=== PATIENT | female | born 1970 | race African-American/Black ===

== ENCOUNTER 2018-06-14 08:26 | Emergency (ER) | payer BC ==
[~2018-06-14] VITALS: Ht 170.2 cm; Wt 136.0 kg
[~2018-06-14 08:26] MED LIST: ABIL10; CLONIDINE; LABETOLOL; LASIX; NORVASC; TRAZODONE; [UNRECOGNIZED DRUG - OTHER]
[2018-06-14] MEDS ORDERED: KETOROLAC 30MG/ML VIAL IV STA (09:05)
[2018-06-14] MEDS ORDERED: SODIUM CHLORIDE 0.9% 1,000 ML IV ONE (09:05)
[2018-06-14 09:29] LABS: BASOPHILS % 1.5 % (0.0-2.0); EOSINOPHILS % 2.5 % (0.0-5.0); HEMATOCRIT. 38.9 % (36.0-48.0); HEMOGLOBIN. 12.6 g/dL (12.0-16.0); LYMPHOCYTES % 29.1 % (20.0-50.0); MEAN CORPUSCULAR HEMOGLOBIN 26.3 pg (28.0-32.0); MEAN CORPUSCULAR VOLUME 80.9 fL (81.0-99.0); MEAN PLATELET VOLUME 7.5 fl (7.4-10.4); MONOCYTES % 6.4 % (2.0-8.0); NEUTROPHILS % 60.5 % (40.0-76.0); PLATELET 384 x1000/uL (130-400); RED BLOOD CELL COUNT 4.81 mill/uL (4.2-5.4); RED CELL DISTRIBUTION WIDTH 15.6 % (11.6-14.6)
[2018-06-14 09:33] LABS: CHLORIDE 106 mEq/L (98-107)
[2018-06-14 09:37] LABS: HCG SCREEN NEGATIVE; PROTHROMBIN TIME 10.1 sec (9.1-11.1)
[2018-06-14] MEDS ORDERED: AMLODIPINE 5MG TABLET PO ONE (09:45)
[2018-06-14 09:51] LABS: CLARITY URINE CLEAR (CLEAR); COLOR URINE YELLOW (YELLOW); KETONES URINE NEGATIVE (NEGATIVE); LEUKOCYTE ESTERASE URINE NEGATIVE (NEGATIVE); NITRITE URINE NEGATIVE (NEGATIVE); OCCULT BLOOD URINE NEGATIVE (NEGATIVE); PH URINE 5.5 (4.5-8.0); PROTEIN URINE NEGATIVE (NEGATIVE); SPECIFIC GRAVITY URINE 1.011 (1.005-1.030)
[2018-06-14] MEDS ORDERED: ACETAMINOPHEN 325MG TABLET PO ONE (10:45)
[2018-06-14 11:50] VITALS: BP 158/90
== END 2018-06-14 12:37 | disposition home or self-care (01) ==
LOC: ER 08:26
DX: M54.5 Low back pain (principal); G89.29 Other chronic pain; M54.30 Sciatica, unspecified side; F41.9 Anxiety disorder, unspecified; I10 Essential (primary) hypertension; F17.200 Nicotine dependence, unspecified, uncomplicated
CPT/HCPCS: 36415; 80053; 81003; 81025; 84703; 85025; 85610; 87086; 96374; 99283; J1885; J7030

== ENCOUNTER 2018-11-03 02:52 | Emergency (ER) | payer BC, MEDICAID ==
[~2018-11-03] VITALS: Ht 170.2 cm; Wt 127.0 kg
[2018-11-03] MEDS ORDERED: KETOROLAC 60MG/2ML VIAL IM STA (03:28)
[2018-11-03 06:50] VITALS: BP 129/69
== END 2018-11-03 06:57 | disposition home or self-care (01) ==
LOC: ER 02:52
DX: M25.561 Pain in right knee (principal); M25.50 Pain in unspecified joint; F41.9 Anxiety disorder, unspecified; F17.210 Nicotine dependence, cigarettes, uncomplicated; F32.9 Major depressive disorder, single episode, unspecified; I10 Essential (primary) hypertension
CPT/HCPCS: 73562; 81025; 93971; 96372; 99284; J1885

== ENCOUNTER 2019-09-14 06:17 | Emergency (ER) | payer MEDICAID ==
[~2019-09-14] VITALS: Ht 170.2 cm; Wt 111.0 kg
[2019-09-14] MEDS ORDERED: KETOROLAC 60MG/2ML VIAL IM ONE (08:00)
[2019-09-14 09:40] VITALS: BP 172/97
== END 2019-09-14 09:48 | disposition home or self-care (01) ==
LOC: ER 06:17
DX: M25.552 Pain in left hip (principal); M25.562 Pain in left knee; M19.90 Unspecified osteoarthritis, unspecified site; I10 Essential (primary) hypertension; Z79.899 Other long term (current) drug therapy
CPT/HCPCS: 73502; 73560; 99284; J1885

== ENCOUNTER 2019-11-26 11:37 | Emergency (ER) | payer MEDICAID ==
[~2019-11-26] VITALS: Ht 170.2 cm; Wt 160.0 kg
[2019-11-26 11:49] VITALS: BP 185/105
== END 2019-11-26 14:17 | disposition left against medical advice (07) ==
LOC: ER 11:37
DX: Z53.21 Procedure and treatment not carried out due to patient leaving prior to being seen by health care provider (principal)

== ENCOUNTER 2020-12-20 09:43 | Emergency (ER) | payer MEDICAID ==
[~2020-12-20] VITALS: Ht 170.2 cm; Wt 132.0 kg
[2020-12-20 10:32] LABS: BASOPHILS % 0.9 % (0.0-2.0); EOSINOPHILS % 3.2 % (0.0-5.0); HEMATOCRIT. 35.5 % (36.0-48.0); HEMOGLOBIN. 11.7 g/dL (12.0-16.0); LYMPHOCYTES % 22.7 % (20.0-50.0); MEAN CORPUSCULAR HEMOGLOBIN 26.3 pg (28.0-32.0); MEAN PLATELET VOLUME 7.4 fl (7.4-10.4); MONOCYTES % 5.7 % (2.0-8.0); NEUTROPHILS % 67.5 % (40.0-76.0); PLATELET 384 x1000/uL (130-400); RED BLOOD CELL COUNT 4.44 mill/uL (4.2-5.4); RED CELL DISTRIBUTION WIDTH 16.4 % (11.6-14.6)
[2020-12-20 10:39] LABS: CHLORIDE 105 mEq/L (98-107)
[2020-12-20 11:04] LABS: CLARITY URINE CLEAR (CLEAR); COLOR URINE YELLOW (YELLOW); KETONES URINE NEGATIVE (NEGATIVE); LEUKOCYTE ESTERASE URINE NEGATIVE (NEGATIVE); NITRITE URINE NEGATIVE (NEGATIVE); OCCULT BLOOD URINE NEGATIVE (NEGATIVE); PROTEIN URINE NEGATIVE (NEGATIVE); UROBILINOGEN URINE 0.2 E.U./dL (0.2-1.0)
[2020-12-20 13:20] VITALS: BP 146/76
== END 2020-12-20 13:22 | disposition home or self-care (01) ==
LOC: ER 09:56
DX: I10 Essential (primary) hypertension (principal); R07.9 Chest pain, unspecified; F41.9 Anxiety disorder, unspecified; J45.909 Unspecified asthma, uncomplicated; F32.9 Major depressive disorder, single episode, unspecified; F17.210 Nicotine dependence, cigarettes, uncomplicated
CPT/HCPCS: 36415; 71045; 80053; 81003; 83880; 84484; 85025; 93005; 99284

== ENCOUNTER 2021-01-01 11:32 | Emergency (ER) | payer MEDICAID ==
[~2021-01-01] VITALS: Ht 167.6 cm; Wt 150.0 kg
[2021-01-01] MEDS ORDERED: SODIUM CHLORIDE 0.9% 1,000 ML IV ONE (15:15)
[2021-01-01] MEDS ORDERED: ACETAMINOPHEN 325MG TABLET PO STA (15:15)
[2021-01-01 16:03] LABS: CLARITY URINE CLEAR (CLEAR); COLOR URINE YELLOW (YELLOW); KETONES URINE NEGATIVE (NEGATIVE); LEUKOCYTE ESTERASE URINE NEGATIVE (NEGATIVE); NITRITE URINE NEGATIVE (NEGATIVE); OCCULT BLOOD URINE NEGATIVE (NEGATIVE); PROTEIN URINE NEGATIVE (NEGATIVE); SPECIFIC GRAVITY URINE 1.021 (1.005-1.030)
[2021-01-01 16:13] LABS: HEMATOCRIT. 37.4 % (36.0-48.0); HEMOGLOBIN. 12.1 g/dL (12.0-16.0); LYMPHOCYTES % 30.4 % (20.0-50.0); MEAN CORPUSCULAR HEMOGLOBIN 26.1 pg (28.0-32.0); MEAN CORPUSCULAR VOLUME 80.5 fL (81.0-99.0); MEAN PLATELET VOLUME 7.5 fl (7.4-10.4); MONOCYTES % 6.1 % (2.0-8.0); NEUTROPHILS % 58.5 % (40.0-76.0); PLATELET 427 x1000/uL (130-400); RED BLOOD CELL COUNT 4.64 mill/uL (4.2-5.4); RED CELL DISTRIBUTION WIDTH 16.1 % (11.6-14.6)
[2021-01-01 16:16] LABS: CHLORIDE 105 mEq/L (98-107)
[2021-01-01 16:20] LABS: PROTHROMBIN TIME 11.2 sec (9.6-11.0)
[2021-01-01 16:32] LABS: HCG SCREEN NEGATIVE
[2021-01-01] MEDS: KETOROLAC 30MG/ML VIAL IV NR ×3 (18:25→18:50)
[2021-01-01 20:00] VITALS: BP 145/73
[2021-01-01] MEDS ORDERED: IBUP-2028 MT (20:14)
== END 2021-01-01 20:30 | disposition home or self-care (01) ==
LOC: ER 11:32
DX: K80.50 Calculus of bile duct without cholangitis or cholecystitis without obstruction (principal); D25.9 Leiomyoma of uterus, unspecified; I10 Essential (primary) hypertension; F41.9 Anxiety disorder, unspecified; J45.909 Unspecified asthma, uncomplicated; F32.9 Major depressive disorder, single episode, unspecified; Z87.891 Personal history of nicotine dependence
CPT/HCPCS: 36415; 74176; 76700; 76830; 76856; 80053; 81003; 83690; 84703; 85025; 85610; 99285; J1885; J7030

== ENCOUNTER 2021-02-20 17:33 | Emergency (ER) | payer MEDICAID ==
[~2021-02-20] VITALS: Ht 170.2 cm; Wt 127.0 kg
[~2021-02-20 17:33] MED LIST changes: +IBUP-2028 MT
[2021-02-20 19:55] VITALS: BP 136/85
[2021-02-20 20:54] LABS: BASOPHILS % 1.7 % (0.0-2.0); HEMATOCRIT. 37.9 % (36.0-48.0); HEMOGLOBIN. 12.1 g/dL (12.0-16.0); LYMPHOCYTES % 35.6 % (20.0-50.0); MEAN CORPUSCULAR HEMOGLOBIN 25.8 pg (28.0-32.0); MEAN CORPUSCULAR VOLUME 80.8 fL (81.0-99.0); MEAN PLATELET VOLUME 7.4 fl (7.4-10.4); MONOCYTES % 5.9 % (2.0-8.0); NEUTROPHILS % 52.8 % (40.0-76.0); PLATELET 384 x1000/uL (130-400); RED BLOOD CELL COUNT 4.69 mill/uL (4.2-5.4); RED CELL DISTRIBUTION WIDTH 16.6 % (11.6-14.6)
[2021-02-20 20:56] LABS: CHLORIDE 104 mEq/L (98-107)
[2021-02-20 20:57] LABS: CLARITY URINE CLEAR (CLEAR); COLOR URINE YELLOW (YELLOW); KETONES URINE NEGATIVE (NEGATIVE); LEUKOCYTE ESTERASE URINE NEGATIVE (NEGATIVE); NITRITE URINE NEGATIVE (NEGATIVE); OCCULT BLOOD URINE NEGATIVE (NEGATIVE); PROTEIN URINE NEGATIVE (NEGATIVE); SPECIFIC GRAVITY URINE 1.018 (1.005-1.030)
[2021-02-20] MEDS ORDERED: MECLIZINE 25MG TABLET PO ONE (21:45)
[2021-02-20] MEDS ORDERED: MECL-159 MT (22:42)
== END 2021-02-20 23:00 | disposition left against medical advice (07) ==
LOC: ER 17:33
DX: R42 Dizziness and giddiness (principal); F41.9 Anxiety disorder, unspecified; J45.909 Unspecified asthma, uncomplicated; F32.9 Major depressive disorder, single episode, unspecified; I10 Essential (primary) hypertension; Z79.899 Other long term (current) drug therapy
CPT/HCPCS: 36415; 70450; 71045; 80053; 80329; 81003; 81025; 84484; 85025; 93005; 99285; J8597

== ENCOUNTER 2021-06-02 07:28 | Emergency (ER) | payer MEDICAID ==
[~2021-06-02] VITALS: Ht 170.2 cm; Wt 168.0 kg
[~2021-06-02 07:28] MED LIST changes: +MECL-159 MT
[2021-06-02 09:05] LABS: HEMATOCRIT. 36.6 % (36.0-48.0); MEAN CORPUSCULAR HEMOGLOBIN 26.1 pg (28.0-32.0); MEAN CORPUSCULAR VOLUME 79.6 fL (81.0-99.0); MEAN PLATELET VOLUME 7.6 fl (7.4-10.4); RED CELL DISTRIBUTION WIDTH 15.9 % (11.6-14.6)
[2021-06-02 09:08] LABS: CLARITY URINE CLEAR (CLEAR); COLOR URINE YELLOW (YELLOW); KETONES URINE NEGATIVE (NEGATIVE); LEUKOCYTE ESTERASE URINE NEGATIVE (NEGATIVE); NITRITE URINE NEGATIVE (NEGATIVE); OCCULT BLOOD URINE NEGATIVE (NEGATIVE); PH URINE 5.5 (4.5-8.0); PROTEIN URINE NEGATIVE (NEGATIVE); SPECIFIC GRAVITY URINE 1.005 (1.005-1.030); UROBILINOGEN URINE 0.2 E.U./dL (0.2-1.0)
[2021-06-02 09:12] LABS: CHLORIDE 105 mEq/L (98-107)
[2021-06-02 09:43] LABS: PLATELET ESTIMATE NORMAL
[2021-06-02 09:44] LABS: PLATELET 150 x1000/uL (130-400)
[2021-06-02] MEDS ORDERED: TRAM50TA3 MT (10:29)
[2021-06-02 10:47] VITALS: BP 129/62
== END 2021-06-02 10:53 | disposition home or self-care (01) ==
LOC: ER 07:28
DX: R07.89 Other chest pain (principal); I10 Essential (primary) hypertension; J45.909 Unspecified asthma, uncomplicated; Z88.6 Allergy status to analgesic agent; Z79.899 Other long term (current) drug therapy; Z98.890 Other specified postprocedural states
CPT/HCPCS: 36415; 71045; 80053; 81003; 81025; 83880; 84484; 85025; 93005; 99285

== ENCOUNTER 2021-07-29 09:30 | Emergency (ER) | payer MEDICAID ==
[~2021-07-29] VITALS: Ht 172.7 cm; Wt 105.0 kg
[~2021-07-29 09:30] MED LIST changes: +TRAM50TA3 MT
[2021-07-29 10:37] LABS: BASOPHILS % 1.1 % (0.0-2.0); EOSINOPHILS % 2.6 % (0.0-5.0); HEMATOCRIT. 38.1 % (36.0-48.0); HEMOGLOBIN. 12.5 g/dL (12.0-16.0); LYMPHOCYTES % 23.8 % (20.0-50.0); MEAN CORPUSCULAR HEMOGLOBIN 25.8 pg (28.0-32.0); MEAN CORPUSCULAR VOLUME 78.8 fL (81.0-99.0); MEAN PLATELET VOLUME 7.8 fl (7.4-10.4); MONOCYTES % 6.4 % (2.0-8.0); NEUTROPHILS % 66.1 % (40.0-76.0); PLATELET 407 x1000/uL (130-400); RED BLOOD CELL COUNT 4.83 mill/uL (4.2-5.4); RED CELL DISTRIBUTION WIDTH 16.7 % (11.6-14.6)
[2021-07-29 10:47] LABS: CHLORIDE 107 mEq/L (98-107)
[2021-07-29 11:09] LABS: D-DIMER 0.27 mg/L FEU (<0.50); PROTHROMBIN TIME 10.7 sec (9.6-11.0)
[2021-07-29] MEDS ORDERED: AMLODIPINE 5MG TABLET PO ONE ×3 (13:00→13:30)
[2021-07-29 13:56] VITALS: BP 157/87
== END 2021-07-29 13:59 | disposition home or self-care (01) ==
LOC: ER 09:30
DX: R07.9 Chest pain, unspecified (principal); F41.9 Anxiety disorder, unspecified; J45.909 Unspecified asthma, uncomplicated; F32.9 Major depressive disorder, single episode, unspecified; I10 Essential (primary) hypertension; Z88.6 Allergy status to analgesic agent
CPT/HCPCS: 36415; 71045; 80053; 83880; 84484; 85025; 85379; 93005; 99285

== ENCOUNTER 2021-09-12 09:51 | Emergency (ER) | payer MEDICAID ==
[~2021-09-12] VITALS: Ht 172.7 cm; Wt 136.0 kg
[2021-09-12 11:55] LABS: BASOPHILS % 0.9 % (0.0-2.0); EOSINOPHILS % 3.4 % (0.0-5.0); HEMATOCRIT. 36.1 % (36.0-48.0); HEMOGLOBIN. 11.8 g/dL (12.0-16.0); LYMPHOCYTES % 28.1 % (20.0-50.0); MEAN CORPUSCULAR HEMOGLOBIN 26.2 pg (28.0-32.0); MEAN CORPUSCULAR VOLUME 80.1 fL (81.0-99.0); MEAN PLATELET VOLUME 7.4 fl (7.4-10.4); MONOCYTES % 7.4 % (2.0-8.0); NEUTROPHILS % 60.2 % (40.0-76.0); PLATELET 366 x1000/uL (130-400); RED BLOOD CELL COUNT 4.51 mill/uL (4.2-5.4); RED CELL DISTRIBUTION WIDTH 16.6 % (11.6-14.6)
[2021-09-12 12:06] LABS: CHLORIDE 107 mEq/L (98-107)
[2021-09-12 12:07] LABS: HCG SCREEN NEGATIVE
[2021-09-12 14:40] LABS: CLARITY URINE CLEAR (CLEAR); COLOR URINE YELLOW (YELLOW); KETONES URINE TRACE (NEGATIVE); LEUKOCYTE ESTERASE URINE NEGATIVE (NEGATIVE); NITRITE URINE NEGATIVE (NEGATIVE); OCCULT BLOOD URINE NEGATIVE (NEGATIVE); PH URINE 5.5 (4.5-8.0); PROTEIN URINE NEGATIVE (NEGATIVE); SPECIFIC GRAVITY URINE 1.027 (1.005-1.030)
[2021-09-12 15:11] VITALS: BP 148/85
[2021-09-12] MEDS ORDERED: ACETAMINOPHEN 325MG TABLET PO ONE (15:15)
== END 2021-09-12 15:19 | disposition home or self-care (01) ==
LOC: ER 09:51
DX: D25.9 Leiomyoma of uterus, unspecified (principal); K80.80 Other cholelithiasis without obstruction; D50.9 Iron deficiency anemia, unspecified; F41.9 Anxiety disorder, unspecified; J45.909 Unspecified asthma, uncomplicated; F32.9 Major depressive disorder, single episode, unspecified; I10 Essential (primary) hypertension; Z88.6 Allergy status to analgesic agent
CPT/HCPCS: 36415; 71045; 76705; 76830; 76856; 80053; 81003; 84484; 84703; 85025; 99285

== ENCOUNTER 2021-10-16 08:29 | Emergency (ER) | payer MEDICAID ==
[~2021-10-16] VITALS: Ht 167.6 cm; Wt 145.0 kg
[2021-10-16 08:35] VITALS: BP 146/81
[2021-10-16] MEDS ORDERED: ACETAMINOPHEN 325MG TABLET PO ONE (09:00)
[2021-10-16] MEDS ORDERED: METH-773 MT (10:08)
== END 2021-10-16 10:17 | disposition home or self-care (01) ==
LOC: ER 08:29
DX: U07.1 COVID-19 (principal); I10 Essential (primary) hypertension
CPT/HCPCS: 71045; 99283

== ENCOUNTER 2021-10-26 07:46 | Emergency (ER) | payer MEDICAID ==
[~2021-10-26] VITALS: Ht 170.2 cm; Wt 146.0 kg
[~2021-10-26 07:46] MED LIST changes: +METH-773 MT
[2021-10-26 10:54] LABS: EOSINOPHILS % 2.5 % (0.0-5.0); HEMATOCRIT. 35.6 % (36.0-48.0); HEMOGLOBIN. 11.6 g/dL (12.0-16.0); LYMPHOCYTES % 26.3 % (20.0-50.0); MEAN CORPUSCULAR HEMOGLOBIN 26.4 pg (28.0-32.0); MEAN CORPUSCULAR VOLUME 80.8 fL (81.0-99.0); MEAN PLATELET VOLUME 8.1 fl (7.4-10.4); MONOCYTES % 6.7 % (2.0-8.0); NEUTROPHILS % 62.5 % (40.0-76.0); PLATELET 386 x1000/uL (130-400); RED CELL DISTRIBUTION WIDTH 16.6 % (11.6-14.6)
[2021-10-26 11:02] LABS: CHLORIDE 107 mEq/L (98-107)
[2021-10-26 11:09] LABS: HCG SCREEN NEGATIVE
[2021-10-26] MEDS: MORPHINE SULFATE 4 MG/ML CPJ (NOT FOR IM USE) IV ONE (12:15)
[2021-10-26] MEDS ORDERED: ACETAMINOPHEN 325MG TABLET PO ONE (12:30)
[2021-10-26 13:24] VITALS: BP 169/94
[2021-10-30] MEDS ORDERED: BACL-141 MT (20:28)
[2021-10-30] MEDS ORDERED: ACET-2708 MT (20:28)
[2021-10-30] MEDS ORDERED: LIDO700A15 TP (20:28)
== END 2021-10-26 15:00 | disposition left against medical advice (07) ==
LOC: ER 08:03 → CMPBEDREQ 16:56
DX: R07.89 Other chest pain (principal); J45.909 Unspecified asthma, uncomplicated; I10 Essential (primary) hypertension; Z88.6 Allergy status to analgesic agent; Z79.899 Other long term (current) drug therapy
CPT/HCPCS: 36415; 71045; 80053; 84484; 84703; 85025; 93005; 99285; J2270

== ENCOUNTER → 2021-10-30 | Emergency (ER) | payer MEDICAID ==
[~2021-10-30] VITALS: Ht 170.2 cm; Wt 167.7 kg
[~2021-10-30] MED LIST changes: +ACET-2708 MT; +ACETAMINOPHEN 325MG TABLET PO NR; +BACL-141 MT; +LIDO700A15 TP; +LIDOCAINE 5% PATCH TOP SCH
[2021-10-30 19:58] LABS: BASOPHILS % 0.8 % (0.0-2.0); EOSINOPHILS % 4.9 % (0.0-5.0); HEMATOCRIT. 35.2 % (36.0-48.0); HEMOGLOBIN. 11.4 g/dL (12.0-16.0); LYMPHOCYTES % 33.2 % (20.0-50.0); MEAN CORPUSCULAR HEMOGLOBIN 26.1 pg (28.0-32.0); MEAN CORPUSCULAR VOLUME 80.6 fL (81.0-99.0); MEAN PLATELET VOLUME 7.7 fl (7.4-10.4); NEUTROPHILS % 54.1 % (40.0-76.0); PLATELET 378 x1000/uL (130-400); RED BLOOD CELL COUNT 4.37 mill/uL (4.2-5.4); RED CELL DISTRIBUTION WIDTH 17.1 % (11.6-14.6)
[2021-10-30 20:13] LABS: CHLORIDE 107 mEq/L (98-107)
[2021-10-30 20:21] LABS: ETHANOL BLOOD < 10 mg/dL
[2021-10-30 20:24] LABS: HCG SCREEN NEGATIVE
[2021-10-30 21:58] VITALS: BP 115/78
== END ==
LOC: ER 15:53
DX: R07.89 Other chest pain (principal); I10 Essential (primary) hypertension; M79.10 Myalgia, unspecified site; F41.9 Anxiety disorder, unspecified; J45.909 Unspecified asthma, uncomplicated; F32.9 Major depressive disorder, single episode, unspecified; Z79.899 Other long term (current) drug therapy
CPT/HCPCS: 36415; 71045; 80053; 80320; 83880; 84484; 84703; 85025; 93005; 99285; G0480

== ENCOUNTER 2021-11-21 16:38 | Emergency (ER) | payer MEDICAID ==
[~2021-11-21] VITALS: Ht 170.2 cm; Wt 163.0 kg
[~2021-11-21 16:38] MED LIST changes: -ACETAMINOPHEN 325MG TABLET PO NR; -LIDOCAINE 5% PATCH TOP SCH
[2021-11-21 16:45] VITALS: BP 172/93
[2021-11-21 17:35] LABS: BASOPHILS % 1.1 % (0.0-2.0); HEMOGLOBIN. 11.3 g/dL (12.0-16.0); MEAN CORPUSCULAR HEMOGLOBIN 26.4 pg (28.0-32.0); MEAN CORPUSCULAR VOLUME 81.5 fL (81.0-99.0); MEAN PLATELET VOLUME 7.6 fl (7.4-10.4); MONOCYTES % 8.4 % (2.0-8.0); NEUTROPHILS % 56.5 % (40.0-76.0); PLATELET 337 x1000/uL (130-400)
[2021-11-21 17:44] LABS: CHLORIDE 110 mEq/L (98-107)
[2021-11-21 17:48] LABS: HCG SCREEN NEGATIVE
[2021-11-21 20:51] LABS: CLARITY URINE CLEAR (CLEAR); COLOR URINE YELLOW (YELLOW); KETONES URINE NEGATIVE (NEGATIVE); LEUKOCYTE ESTERASE URINE NEGATIVE (NEGATIVE); NITRITE URINE NEGATIVE (NEGATIVE); OCCULT BLOOD URINE NEGATIVE (NEGATIVE); PH URINE 5.5 (4.5-8.0); PROTEIN URINE NEGATIVE (NEGATIVE); SPECIFIC GRAVITY URINE 1.029 (1.005-1.030)
[2021-11-21] MEDS ORDERED: ACETAMINOPHEN 325MG TABLET PO ONE (21:15)
[2021-11-22] MEDS ORDERED: ACET-2708 MT (14:22)
[2021-11-22] MEDS ORDERED: HYDR-4001 MT (14:39)
== END 2021-11-21 22:39 | disposition left against medical advice (07) ==
LOC: ER 16:47
DX: K80.80 Other cholelithiasis without obstruction (principal); R10.9 Unspecified abdominal pain; F41.9 Anxiety disorder, unspecified; J45.909 Unspecified asthma, uncomplicated; F32.9 Major depressive disorder, single episode, unspecified; I10 Essential (primary) hypertension; Z88.6 Allergy status to analgesic agent
CPT/HCPCS: 36415; 74176; 80053; 81003; 84703; 85025; 99284

== ENCOUNTER 2021-11-22 00:20 | Emergency (ER) | payer MEDICAID ==
[~2021-11-22] VITALS: Ht 172.7 cm; Wt 169.0 kg
[2021-11-22 00:52] VITALS: BP 157/93
[2021-11-22] MEDS ORDERED: ACET-2708 MT (14:22)
[2021-11-22] MEDS ORDERED: HYDR-4001 MT (14:39)
== END 2021-11-22 06:11 | disposition left against medical advice (07) ==
LOC: ER 00:20
DX: Z53.21 Procedure and treatment not carried out due to patient leaving prior to being seen by health care provider (principal)
CPT/HCPCS: 93005

== ENCOUNTER 2021-11-22 08:57 | Emergency (ER) | payer MEDICAID ==
[~2021-11-22] VITALS: Ht 170.2 cm; Wt 163.0 kg
[2021-11-22] MEDS ORDERED: ACETAMINOPHEN 500MG TABLET PO ONE (13:00)
[2021-11-22 13:27] LABS: BASOPHILS % 0.5 % (0.0-2.0); EOSINOPHILS % 3.2 % (0.0-5.0); HEMATOCRIT. 38.2 % (36.0-48.0); HEMOGLOBIN. 12.3 g/dL (12.0-16.0); LYMPHOCYTES % 21.9 % (20.0-50.0); MEAN CORPUSCULAR HEMOGLOBIN 26.2 pg (28.0-32.0); MEAN CORPUSCULAR VOLUME 81.8 fL (81.0-99.0); MEAN PLATELET VOLUME 7.7 fl (7.4-10.4); MONOCYTES % 5.5 % (2.0-8.0); NEUTROPHILS % 68.9 % (40.0-76.0); PLATELET 377 x1000/uL (130-400); RED BLOOD CELL COUNT 4.67 mill/uL (4.2-5.4); RED CELL DISTRIBUTION WIDTH 17.1 % (11.6-14.6)
[2021-11-22 13:28] LABS: CHLORIDE 106 mEq/L (98-107)
[2021-11-22] MEDS ORDERED: ACET-2708 MT (14:22)
[2021-11-22] MEDS ORDERED: HYDR-4001 MT (14:39)
[2021-11-22 14:41] VITALS: BP 134/72
== END 2021-11-22 14:43 | disposition home or self-care (01) ==
LOC: ER 09:12
DX: K80.20 Calculus of gallbladder without cholecystitis without obstruction (principal); F41.9 Anxiety disorder, unspecified; J45.909 Unspecified asthma, uncomplicated; F32.9 Major depressive disorder, single episode, unspecified; I10 Essential (primary) hypertension
CPT/HCPCS: 36415; 76705; 80053; 81025; 85025; 99284

== ENCOUNTER 2021-12-20 00:20 | Emergency (ER) | payer MEDICAID ==
[~2021-12-20] VITALS: Ht 170.2 cm; Wt 168.9 kg
[~2021-12-20 00:20] MED LIST changes: +HYDR-4001 MT
[2021-12-20 08:17] LABS: BASOPHILS % 1.2 % (0.0-2.0); EOSINOPHILS % 2.9 % (0.0-5.0); HEMATOCRIT. 36.1 % (36.0-48.0); HEMOGLOBIN. 12.4 g/dL (12.0-16.0); LYMPHOCYTES % 24.4 % (20.0-50.0); MEAN CORPUSCULAR HEMOGLOBIN 27.7 pg (28.0-32.0); MEAN CORPUSCULAR VOLUME 80.5 fL (81.0-99.0); MEAN PLATELET VOLUME 7.7 fl (7.4-10.4); MONOCYTES % 6.6 % (2.0-8.0); NEUTROPHILS % 64.9 % (40.0-76.0); PLATELET 427 x1000/uL (130-400); RED BLOOD CELL COUNT 4.48 mill/uL (4.2-5.4)
[2021-12-20 08:23] LABS: CHLORIDE 102 mEq/L (98-107)
[2021-12-20] MEDS ORDERED: KETOROLAC 30MG/ML VIAL IV ONE (08:30)
[2021-12-20 09:27] VITALS: BP 153/98
== END 2021-12-20 09:28 | disposition home or self-care (01) ==
LOC: ER 00:51
DX: R07.89 Other chest pain (principal); F41.9 Anxiety disorder, unspecified; J45.909 Unspecified asthma, uncomplicated; I10 Essential (primary) hypertension; Z79.899 Other long term (current) drug therapy
CPT/HCPCS: 36415; 71045; 80053; 81025; 83690; 84484; 85025; 96374; 99284; J1885

== ENCOUNTER 2022-02-13 09:34 | Emergency (ER) | payer MEDICAID ==
[~2022-02-13] VITALS: Ht 170.2 cm; Wt 147.0 kg
[2022-02-13 09:42] VITALS: BP 176/112
[2022-02-13] MEDS ORDERED: ASPIRIN 325MG TABLET PO ONE (11:00)
[2022-02-13] MEDS ORDERED: ALBUTEROL (0.083%) 2.5MG/3ML NEB HHN ONE (11:00)
[2022-02-13] MEDS ORDERED: PREDNISONE 20MG TABLET PO ONE (11:00)
[2022-02-13 13:52] LABS: BASOPHILS % 0.7 % (0.0-2.0); EOSINOPHILS % 2.5 % (0.0-5.0); HEMATOCRIT. 36.7 % (36.0-48.0); HEMOGLOBIN. 11.9 g/dL (12.0-16.0); MEAN CORPUSCULAR HEMOGLOBIN 26.5 pg (28.0-32.0); MEAN CORPUSCULAR VOLUME 81.7 fL (81.0-99.0); MEAN PLATELET VOLUME 7.8 fl (7.4-10.4); MONOCYTES % 4.2 % (2.0-8.0); NEUTROPHILS % 75.6 % (40.0-76.0); PLATELET 357 x1000/uL (130-400); RED BLOOD CELL COUNT 4.49 mill/uL (4.2-5.4); RED CELL DISTRIBUTION WIDTH 16.5 % (11.6-14.6)
[2022-02-13 14:01] LABS: CHLORIDE 104 mEq/L (98-107)
[2022-02-13] MEDS ORDERED: P20 MT (14:18)
[2022-02-13] MEDS ORDERED: GUAI-450 MT (14:29)
[2022-02-13] MEDS ORDERED: METH-653 MT (15:00)
[2022-02-13] MEDS ORDERED: METHOCARBAMOL 750MG TABLET PO SCH (22:00)
== END 2022-02-13 15:00 | disposition home or self-care (01) ==
LOC: ER 09:41
DX: J45.901 Unspecified asthma with (acute) exacerbation (principal); F41.9 Anxiety disorder, unspecified; I11.9 Hypertensive heart disease without heart failure; Z88.6 Allergy status to analgesic agent
CPT/HCPCS: 36415; 71045; 80053; 84484; 85025; 93005; 94640; 99285; J7512; Z7610

== ENCOUNTER 2022-02-24 08:35 | Emergency (ER) | payer MEDICAID ==
[~2022-02-24] VITALS: Ht 170.2 cm; Wt 168.7 kg
[~2022-02-24 08:35] MED LIST changes: +GUAI-450 MT; +METH-653 MT; +P20 MT
[2022-02-24 10:38] VITALS: BP 157/85
== END 2022-02-24 18:07 | disposition left against medical advice (07) ==
LOC: ER 08:35
DX: Z53.21 Procedure and treatment not carried out due to patient leaving prior to being seen by health care provider (principal); J45.909 Unspecified asthma, uncomplicated; F41.9 Anxiety disorder, unspecified; I11.9 Hypertensive heart disease without heart failure; Z88.6 Allergy status to analgesic agent
CPT/HCPCS: 93005

== ENCOUNTER 2022-03-27 07:23 | Emergency (ER) | payer MEDICAID ==
[~2022-03-27] VITALS: Ht 170.2 cm; Wt 148.0 kg
[2022-03-27 07:59] VITALS: BP 167/92
[2022-03-27] MEDS ORDERED: MAGNESIUM/ALUMINUM HYDROXIDE/SIMETHICONE 30ML UDC PO STA (08:59)
[2022-03-27] MEDS ORDERED: FAMOTIDINE 20MG TABLET PO ONE (09:00)
[2022-03-27 09:26] LABS: BASOPHILS % 0.8 % (0.0-2.0); EOSINOPHILS % 1.5 % (0.0-5.0); HEMATOCRIT. 37.6 % (36.0-48.0); HEMOGLOBIN. 12.3 g/dL (12.0-16.0); LYMPHOCYTES % 19.8 % (20.0-50.0); MEAN CORPUSCULAR HEMOGLOBIN 25.9 pg (28.0-32.0); MEAN PLATELET VOLUME 7.2 fl (7.4-10.4); MONOCYTES % 6.2 % (2.0-8.0); NEUTROPHILS % 71.7 % (40.0-76.0); PLATELET 380 x1000/uL (130-400); RED BLOOD CELL COUNT 4.76 mill/uL (4.2-5.4); RED CELL DISTRIBUTION WIDTH 16.5 % (11.6-14.6)
[2022-03-27 09:33] LABS: CHLORIDE 107 mEq/L (98-107)
[2022-03-27] MEDS ORDERED: MAG-55 MT (11:29)
[2022-03-27] MEDS ORDERED: FAMO20TA8 PO (11:29)
[2022-03-29] MEDS ORDERED: P20 MT (13:41)
== END 2022-03-27 11:37 | disposition home or self-care (01) ==
LOC: ER 07:41
DX: R10.12 Left upper quadrant pain (principal); I11.9 Hypertensive heart disease without heart failure; F41.9 Anxiety disorder, unspecified; J45.909 Unspecified asthma, uncomplicated; E66.01 Morbid (severe) obesity due to excess calories; Z68.43 Body mass index [BMI] 50.0-59.9, adult; Z79.01 Long term (current) use of anticoagulants; Z88.6 Allergy status to analgesic agent; Z88.5 Allergy status to narcotic agent
CPT/HCPCS: 36415; 80053; 84484; 85025; 93005; 99284

== ENCOUNTER 2022-04-07 18:26 | Emergency (ER) | payer MEDICAID ==
[~2022-04-07] VITALS: Ht 170.2 cm; Wt 146.0 kg
[~2022-04-07 18:26] MED LIST changes: +FAMO20TA8 PO; +MAG-55 MT
[2022-04-07 18:45] VITALS: BP 150/89
[2022-04-07] MEDS ORDERED: ALBUTEROL (0.083%) 2.5MG/3ML NEB HHN ONE (19:45)
[2022-04-07 21:55] LABS: BASOPHILS % 1.2 % (0.0-2.0); EOSINOPHILS % 3.2 % (0.0-5.0); HEMOGLOBIN. 12.5 g/dL (12.0-16.0); LYMPHOCYTES % 33.2 % (20.0-50.0); MEAN CORPUSCULAR VOLUME 79.2 fL (81.0-99.0); MEAN PLATELET VOLUME 7.8 fl (7.4-10.4); MONOCYTES % 5.7 % (2.0-8.0); NEUTROPHILS % 56.7 % (40.0-76.0); PLATELET 411 x1000/uL (130-400); RED CELL DISTRIBUTION WIDTH 16.9 % (11.6-14.6)
[2022-04-07 22:02] LABS: CHLORIDE 104 mEq/L (98-107)
[2022-04-07 22:19] LABS: HCG SCREEN NEGATIVE
== END 2022-04-07 23:47 | disposition home or self-care (01) ==
LOC: ER 18:26
DX: R07.89 Other chest pain (principal); M25.461 Effusion, right knee; F41.9 Anxiety disorder, unspecified; I10 Essential (primary) hypertension; J45.909 Unspecified asthma, uncomplicated; Z88.5 Allergy status to narcotic agent; Z88.6 Allergy status to analgesic agent
CPT/HCPCS: 36415; 71045; 80053; 84484; 84703; 85025; 93005; 93971; 99285

== ENCOUNTER 2022-04-16 08:46 | Emergency (ER) | payer MEDICAID ==
[~2022-04-16] VITALS: Ht 170.2 cm; Wt 365.0 kg
[2022-04-16 09:13] VITALS: BP 156/78
[2022-04-16 09:54] LABS: CHLORIDE 104 mEq/L (98-107)
[2022-04-16 11:47] LABS: BASOPHILS % 0.9 % (0.0-2.0); EOSINOPHILS % 2.3 % (0.0-5.0); HEMATOCRIT. 36.9 % (36.0-48.0); HEMOGLOBIN. 12.2 g/dL (12.0-16.0); LYMPHOCYTES % 27.3 % (20.0-50.0); MEAN CORPUSCULAR VOLUME 78.6 fL (81.0-99.0); MEAN PLATELET VOLUME 7.5 fl (7.4-10.4); MONOCYTES % 5.6 % (2.0-8.0); NEUTROPHILS % 63.9 % (40.0-76.0); PLATELET 407 x1000/uL (130-400); RED BLOOD CELL COUNT 4.69 mill/uL (4.2-5.4); RED CELL DISTRIBUTION WIDTH 16.5 % (11.6-14.6)
[2022-04-16 11:50] LABS: D-DIMER 0.26 mg/L FEU (<0.50); PROTHROMBIN TIME 11.1 sec (9.6-11.0)
[2022-04-16] MEDS ORDERED: KETOROLAC 30MG/ML VIAL IM ONE (12:15)
[2022-04-16] MEDS ORDERED: IBUPROFEN 600MG TABLET PO ONE (12:30)
[2022-04-16] MEDS ORDERED: ACETAMINOPHEN 325MG TABLET PO ONE (12:30)
[2022-04-16] MEDS ORDERED: ACET-2708 MT (12:32)
== END 2022-04-16 13:15 | disposition home or self-care (01) ==
LOC: ER 08:46
DX: R07.89 Other chest pain (principal); J45.909 Unspecified asthma, uncomplicated; I10 Essential (primary) hypertension; Z88.6 Allergy status to analgesic agent; Z79.899 Other long term (current) drug therapy
CPT/HCPCS: 36415; 71045; 76705; 80053; 83690; 84484; 85025; 85379; 85610; 93005; 99285; J1885

== ENCOUNTER 2022-04-21 17:06 | Emergency (ER) | payer MEDICAID ==
[~2022-04-21] VITALS: Ht 170.2 cm; Wt 165.0 kg
[2022-04-21] MEDS ORDERED: ONDANSETRON 4MG ODT PO ONE (21:15)
[2022-04-21 21:41] LABS: BASOPHILS % 1.3 % (0.0-2.0); EOSINOPHILS % 1.6 % (0.0-5.0); HEMATOCRIT. 38.8 % (36.0-48.0); HEMOGLOBIN. 12.5 g/dL (12.0-16.0); LYMPHOCYTES % 29.4 % (20.0-50.0); MEAN CORPUSCULAR HEMOGLOBIN 25.5 pg (28.0-32.0); MEAN CORPUSCULAR VOLUME 79.2 fL (81.0-99.0); MEAN PLATELET VOLUME 7.4 fl (7.4-10.4); MONOCYTES % 5.3 % (2.0-8.0); NEUTROPHILS % 62.4 % (40.0-76.0); PLATELET 424 x1000/uL (130-400); RED BLOOD CELL COUNT 4.89 mill/uL (4.2-5.4); RED CELL DISTRIBUTION WIDTH 16.3 % (11.6-14.6)
[2022-04-21 21:51] LABS: CHLORIDE 101 mEq/L (98-107)
[2022-04-22 00:02] LABS: CLARITY URINE CLEAR (CLEAR); COLOR URINE YELLOW (YELLOW); KETONES URINE NEGATIVE (NEGATIVE); LEUKOCYTE ESTERASE URINE NEGATIVE (NEGATIVE); NITRITE URINE NEGATIVE (NEGATIVE); OCCULT BLOOD URINE NEGATIVE (NEGATIVE); PH URINE 5.5 (4.5-8.0); PROTEIN URINE NEGATIVE (NEGATIVE); SPECIFIC GRAVITY URINE 1.008 (1.005-1.030); UROBILINOGEN URINE 0.2 E.U./dL (0.2-1.0)
[2022-04-22 01:30] VITALS: BP 148/88
== END 2022-04-22 01:42 | disposition home or self-care (01) ==
LOC: ER 17:32
DX: R07.9 Chest pain, unspecified (principal); R10.31 Right lower quadrant pain; J45.909 Unspecified asthma, uncomplicated; E05.90 Thyrotoxicosis, unspecified without thyrotoxic crisis or storm; Z88.5 Allergy status to narcotic agent; Z88.6 Allergy status to analgesic agent
CPT/HCPCS: 36415; 71045; 74176; 80053; 81003; 83690; 83880; 84484; 85025; 93005; 99285; Q0162

== ENCOUNTER 2022-06-06 00:51 | Emergency (ER) | payer MEDICAID ==
[~2022-06-06] VITALS: Ht 170.2 cm; Wt 167.6 kg
[2022-06-06 01:12] VITALS: BP 165/79
== END 2022-06-06 08:39 | disposition left against medical advice (07) ==
LOC: ER 00:51
DX: R07.89 Other chest pain (principal); Z53.21 Procedure and treatment not carried out due to patient leaving prior to being seen by health care provider
CPT/HCPCS: 93005; 99281

== ENCOUNTER 2022-06-06 16:30 | Emergency (ER) | payer MEDICAID ==
[~2022-06-06] VITALS: Ht 170.2 cm; Wt 163.0 kg
[2022-06-06 16:38] VITALS: BP 172/90
[2022-06-06 22:54] LABS: CHLORIDE 106 mEq/L (98-107)
[2022-06-06 22:58] LABS: BASOPHILS % 1.2 % (0.0-2.0); EOSINOPHILS % 2.6 % (0.0-5.0); HEMATOCRIT. 36.8 % (36.0-48.0); HEMOGLOBIN. 12.3 g/dL (12.0-16.0); MEAN CORPUSCULAR HEMOGLOBIN 26.4 pg (28.0-32.0); MEAN PLATELET VOLUME 7.9 fl (7.4-10.4); NEUTROPHILS % 60.2 % (40.0-76.0); PLATELET 442 x1000/uL (130-400); RED BLOOD CELL COUNT 4.66 mill/uL (4.2-5.4); RED CELL DISTRIBUTION WIDTH 16.6 % (11.6-14.6)
[2022-06-06 23:07] LABS: HCG SCREEN NEGATIVE
== END 2022-06-07 | disposition home or self-care (01) ==
LOC: ER 16:30
DX: R00.2 Palpitations (principal); I10 Essential (primary) hypertension; J45.909 Unspecified asthma, uncomplicated; Z88.6 Allergy status to analgesic agent; Z88.5 Allergy status to narcotic agent
CPT/HCPCS: 36415; 71045; 80053; 83880; 84443; 84484; 84703; 85025; 99284

== ENCOUNTER 2022-07-03 08:35 | Emergency (ER) | payer MEDICAID ==
[~2022-07-03] VITALS: Ht 170.2 cm; Wt 137.0 kg
[2022-07-03] MEDS ORDERED: SODIUM CHLORIDE 0.9% 500 ML IV ONE (09:00)
[2022-07-03 09:03] LABS: HEMATOCRIT 35.5 % (36.0-48.0); HEMOGLOBIN 11.7 g/dL (12.0-16.0); MEAN CORPUSCULAR HEMOGLOBIN 26.1 pg (28.0-32.0); MEAN CORPUSCULAR VOLUME 79.3 fL (81.0-99.0); PLATELET 416 x1000/uL (130-400); RED BLOOD CELL COUNT 4.47 mill/uL (4.2-5.4); RED CELL DISTRIBUTION WIDTH 16.9 % (11.6-14.6)
[2022-07-03 09:09] LABS: CHLORIDE 108 mEq/L (98-107)
[2022-07-03 09:25] LABS: HCG SCREEN NEGATIVE
[2022-07-03] MEDS ORDERED: MELOXICAM 7.5MG TABLET PO SCH (09:45)
[2022-07-03] MEDS ORDERED: ACETAMINOPHEN 325MG TABLET PO SCH (10:00)
[2022-07-03 13:47] LABS: CLARITY URINE CLEAR (CLEAR); COLOR URINE YELLOW (YELLOW); KETONES URINE NEGATIVE (NEGATIVE); LEUKOCYTE ESTERASE URINE NEGATIVE (NEGATIVE); NITRITE URINE NEGATIVE (NEGATIVE); OCCULT BLOOD URINE NEGATIVE (NEGATIVE); PROTEIN URINE NEGATIVE (NEGATIVE); SPECIFIC GRAVITY URINE 1.007 (1.005-1.030); UROBILINOGEN URINE 0.2 E.U./dL (0.2-1.0)
[2022-07-03] MEDS ORDERED: TRAM50TA3 MT (14:08)
[2022-07-03 14:44] VITALS: BP 136/74
== END 2022-07-03 14:45 | disposition home or self-care (01) ==
LOC: ER 08:35
DX: D21.9 Benign neoplasm of connective and other soft tissue, unspecified (principal); I10 Essential (primary) hypertension; J45.909 Unspecified asthma, uncomplicated; Z88.6 Allergy status to analgesic agent; Z79.899 Other long term (current) drug therapy
CPT/HCPCS: 36415; 74176; 76705; 80053; 81003; 83690; 84703; 85027; 99284; J7040

== ENCOUNTER 2022-07-10 15:17 | Emergency (ER) | payer MEDICAID ==
[~2022-07-10] VITALS: Ht 170.2 cm; Wt 137.0 kg
[2022-07-10 16:38] LABS: CLARITY URINE CLEAR (CLEAR); COLOR URINE YELLOW (YELLOW); KETONES URINE NEGATIVE (NEGATIVE); LEUKOCYTE ESTERASE URINE NEGATIVE (NEGATIVE); NITRITE URINE NEGATIVE (NEGATIVE); OCCULT BLOOD URINE NEGATIVE (NEGATIVE); PROTEIN URINE NEGATIVE (NEGATIVE); SPECIFIC GRAVITY URINE 1.021 (1.005-1.030)
[2022-07-10 16:45] LABS: BASOPHILS % 0.7 % (0.0-2.0); EOSINOPHILS % 2.4 % (0.0-5.0); HEMATOCRIT. 35.6 % (36.0-48.0); HEMOGLOBIN. 11.9 g/dL (12.0-16.0); LYMPHOCYTES % 24.9 % (20.0-50.0); MEAN CORPUSCULAR HEMOGLOBIN 26.4 pg (28.0-32.0); MEAN CORPUSCULAR VOLUME 79.4 fL (81.0-99.0); MEAN PLATELET VOLUME 7.4 fl (7.4-10.4); MONOCYTES % 7.2 % (2.0-8.0); NEUTROPHILS % 64.8 % (40.0-76.0); PLATELET 384 x1000/uL (130-400); RED BLOOD CELL COUNT 4.49 mill/uL (4.2-5.4); RED CELL DISTRIBUTION WIDTH 16.6 % (11.6-14.6)
[2022-07-10 16:54] LABS: CHLORIDE 105 mEq/L (98-107)
[2022-07-10] MEDS ORDERED: MORPHINE SULFATE 4 MG/ML CPJ (NOT FOR IM USE) IV ONE (17:45)
[2022-07-10] MEDS ORDERED: ONDANSETRON HCL 4MG/2ML INJ IV ONE (17:45)
[2022-07-10 19:37] LABS: HCG SCREEN NEGATIVE
[2022-07-10] MEDS ORDERED: ONDA4TAB50 MT (20:13)
[2022-07-10] MEDS ORDERED: T3 PO (20:13)
[2022-07-10] MEDS ORDERED: ACETAMINOPHEN WITH CODEINE 300/30MG TABLET PO ONE (20:15)
[2022-07-10] MEDS ORDERED: ONDANSETRON 4MG ODT PO ONE (20:15)
[2022-07-10] MEDS ORDERED: HYDROCODONE/ACETAMINOPHEN 5/325MG TABLET PO ONE (20:30)
[2022-07-10 20:36] VITALS: BP 139/96
== END 2022-07-10 20:38 | disposition home or self-care (01) ==
LOC: ER 15:17
DX: K80.20 Calculus of gallbladder without cholecystitis without obstruction (principal); Z68.42 Body mass index [BMI] 45.0-49.9, adult
CPT/HCPCS: 36415; 74176; 80048; 81003; 83690; 84703; 85025; 99284; Q0162

== ENCOUNTER 2022-08-06 16:30 | Emergency (ER) | payer MEDICAID ==
[~2022-08-06] VITALS: Ht 170.2 cm; Wt 120.0 kg
[~2022-08-06 16:30] MED LIST changes: +ONDA4TAB50 MT; +T3 PO
[2022-08-06 16:41] VITALS: BP 176/94
[2022-08-06 17:10] LABS: BASOPHILS % 0.9 % (0.0-2.0); EOSINOPHILS % 2.4 % (0.0-5.0); HEMATOCRIT. 34.7 % (36.0-48.0); HEMOGLOBIN. 11.5 g/dL (12.0-16.0); LYMPHOCYTES % 25.6 % (20.0-50.0); MEAN CORPUSCULAR HEMOGLOBIN 26.2 pg (28.0-32.0); MEAN CORPUSCULAR VOLUME 79.3 fL (81.0-99.0); MEAN PLATELET VOLUME 7.6 fl (7.4-10.4); MONOCYTES % 7.4 % (2.0-8.0); NEUTROPHILS % 63.7 % (40.0-76.0); PLATELET 360 x1000/uL (130-400); RED BLOOD CELL COUNT 4.38 mill/uL (4.2-5.4); RED CELL DISTRIBUTION WIDTH 16.9 % (11.6-14.6)
[2022-08-06 17:17] LABS: PROTHROMBIN TIME 10.6 sec (9.6-11.0)
[2022-08-06 17:18] LABS: CHLORIDE 107 mEq/L (98-107)
== END 2022-08-06 20:27 | disposition home or self-care (01) ==
LOC: ER 16:30
DX: R07.89 Other chest pain (principal); J45.909 Unspecified asthma, uncomplicated; I10 Essential (primary) hypertension
CPT/HCPCS: 36415; 71045; 80053; 84484; 85025; 93005; 99285

== ENCOUNTER 2022-08-11 09:51 | Emergency (ER) | payer MEDICAID ==
[~2022-08-11] VITALS: Ht 170.2 cm; Wt 145.5 kg
[2022-08-11 10:34] LABS: BASOPHILS % 0.8 % (0.0-2.0); EOSINOPHILS % 2.6 % (0.0-5.0); HEMATOCRIT. 35.5 % (36.0-48.0); HEMOGLOBIN. 11.6 g/dL (12.0-16.0); LYMPHOCYTES % 21.1 % (20.0-50.0); MEAN CORPUSCULAR HEMOGLOBIN 26.1 pg (28.0-32.0); MEAN CORPUSCULAR VOLUME 79.7 fL (81.0-99.0); MEAN PLATELET VOLUME 7.7 fl (7.4-10.4); MONOCYTES % 6.2 % (2.0-8.0); NEUTROPHILS % 69.3 % (40.0-76.0); PLATELET 367 x1000/uL (130-400); RED BLOOD CELL COUNT 4.46 mill/uL (4.2-5.4); RED CELL DISTRIBUTION WIDTH 16.2 % (11.6-14.6)
[2022-08-11 10:42] LABS: CHLORIDE 109 mEq/L (98-107)
[2022-08-11 12:05] VITALS: BP 138/84
[2022-08-11] MEDS ORDERED: ACETAMINOPHEN 325MG TABLET PO ONE (12:15)
[2022-08-11 13:16] LABS: CLARITY URINE CLEAR (CLEAR); COLOR URINE YELLOW (YELLOW); KETONES URINE NEGATIVE (NEGATIVE); LEUKOCYTE ESTERASE URINE NEGATIVE (NEGATIVE); NITRITE URINE NEGATIVE (NEGATIVE); OCCULT BLOOD URINE NEGATIVE (NEGATIVE); PROTEIN URINE NEGATIVE (NEGATIVE); SPECIFIC GRAVITY URINE 1.005 (1.005-1.030); UROBILINOGEN URINE 0.2 E.U./dL (0.2-1.0)
== END 2022-08-11 14:02 | disposition home or self-care (01) ==
LOC: ER 09:51
DX: M71.22 Synovial cyst of popliteal space [Baker], left knee (principal); R07.89 Other chest pain; J45.909 Unspecified asthma, uncomplicated; I10 Essential (primary) hypertension; Z88.6 Allergy status to analgesic agent; Z79.899 Other long term (current) drug therapy; Z98.890 Other specified postprocedural states
CPT/HCPCS: 36415; 71045; 80053; 81003; 81025; 84484; 85025; 85379; 93005; 93970; 99285

== ENCOUNTER 2022-10-30 12:37 | Emergency (ER) | payer MEDICAID ==
[~2022-10-30] VITALS: Ht 172.7 cm; Wt 136.0 kg
[2022-10-30 12:43] VITALS: O2SAT 98
[2022-10-30 13:26] LABS: BASOPHILS % 1.2 % (0.0-2.0); DIFFERENTIAL COMMENT 0; EOSINOPHILS % 2.7 % (0.0-5.0); HEMATOCRIT. 36.6 % (36.0-48.0); LYMPHOCYTES % 27.7 % (20.0-50.0); MEAN CORPUSCULAR HEMOGLOBIN 25.7 pg (28.0-32.0); MEAN CORPUSCULAR HGB CONC 32.7 g/dL (31.0-37.0); MEAN CORPUSCULAR VOLUME 78.7 fL (81.0-99.0); MEAN PLATELET VOLUME 7.6 fl (7.4-10.4); MONOCYTES % 6.4 % (2.0-8.0); PLATELET 363 x1000/uL (130-400); RED BLOOD CELL COUNT 4.65 mill/uL (4.2-5.4); RED CELL DISTRIBUTION WIDTH 16.9 % (11.6-14.6); WHITE BLOOD COUNT 7.8 x1000/uL (4.5-11.0)
[2022-10-30 13:33] LABS: CHLORIDE 109 mEq/L (98-107); INDEX HEMOLYSI 1 (1-3); INDEX ICTERIC 1 (1-4); INDEX LIPEMIC 1 (1-3); POTASSIUM 3.7 mEq/L (3.5-5.1); SODIUM 140 mEq/L (136-145)
[2022-10-30 13:43] LABS: ALBUMIN 3.7 g/dL (3.4-5.0); ASPARTATE AMINOTRANSFERASE 30 IU/L (15-37); BILIRUBIN TOTAL 0.5 mg/dL (0.1-1.0); CALCIUM 8.6 mg/dL (8.5-10.1); CARBON DIOXIDE 25 mEq/L (21-32); GLUCOSE 132 mg/dL (70-105); NT PRO B-TYPE NATRIURETIC PEP 40 pg/mL (5-125); PROTEIN TOTAL 8.1 g/dL (6.0-8.3); TROPONIN I HIGH SENSITIVITY 16 ng/L (<54); UREA NITROGEN BLOOD 15 mg/dL (7-21)
[2022-10-30 15:12] LABS: ALANINE AMINOTRANSFERASE 25 IU/L (13-61)
[2022-10-30] MEDS ORDERED: FURO-151 MT (15:59)
[2022-10-30 16:25] VITALS: BP 145/87; PULSE 93; RESP 20; TEMP 98
== END 2022-10-30 16:25 | disposition home or self-care (01) ==
LOC: ER 12:46
DX: R60.0 Localized edema (principal); F41.9 Anxiety disorder, unspecified; J45.909 Unspecified asthma, uncomplicated; I10 Essential (primary) hypertension; Z79.899 Other long term (current) drug therapy
CPT/HCPCS: 36415; 71045; 80053; 81025; 83880; 84484; 85025; 93005; 99285

== ENCOUNTER 2022-11-11 17:46 | Emergency (ER) | payer MEDICAID ==
[~2022-11-11] VITALS: Ht 170.2 cm; Wt 150.0 kg
[~2022-11-11 17:46] MED LIST changes: +FURO-151 MT
[2022-11-11 17:47] VITALS: BP 163/71; PULSE 90; RESP 16; TEMP 98.4; O2SAT 98
[2022-11-11 18:32] LABS: BASOPHILS % 1.3 % (0.0-2.0); DIFFERENTIAL COMMENT 0; EOSINOPHILS % 3.3 % (0.0-5.0); HEMATOCRIT. 36.9 % (36.0-48.0); HEMOGLOBIN. 11.9 g/dL (12.0-16.0); LYMPHOCYTES % 31.9 % (20.0-50.0); MEAN CORPUSCULAR HEMOGLOBIN 25.2 pg (28.0-32.0); MEAN CORPUSCULAR HGB CONC 32.3 g/dL (31.0-37.0); MEAN PLATELET VOLUME 7.8 fl (7.4-10.4); MONOCYTES % 6.6 % (2.0-8.0); NEUTROPHILS % 56.9 % (40.0-76.0); PLATELET 339 x1000/uL (130-400); RED BLOOD CELL COUNT 4.73 mill/uL (4.2-5.4); RED CELL DISTRIBUTION WIDTH 16.2 % (11.6-14.6); WHITE BLOOD COUNT 7.4 x1000/uL (4.5-11.0)
[2022-11-11 18:44] LABS: CHLORIDE 105 mEq/L (98-107); INDEX HEMOLYSI 1 (1-3); INDEX ICTERIC 1 (1-4); INDEX LIPEMIC 1 (1-3); POTASSIUM 3.9 mEq/L (3.5-5.1); SODIUM 135 mEq/L (136-145)
[2022-11-11 18:54] LABS: ALANINE AMINOTRANSFERASE 24 IU/L (13-61); ALBUMIN 3.4 g/dL (3.4-5.0); ASPARTATE AMINOTRANSFERASE 15 IU/L (15-37); BILIRUBIN TOTAL 0.3 mg/dL (0.1-1.0); CALCIUM 8.5 mg/dL (8.5-10.1); CARBON DIOXIDE 24 mEq/L (21-32); CREATININE 0.9 mg/dL (0.6-1.3); GLUCOSE 113 mg/dL (70-105); PROTEIN TOTAL 7.4 g/dL (6.0-8.3); TROPONIN I HIGH SENSITIVITY 11 ng/L (<54); UREA NITROGEN BLOOD 13 mg/dL (7-21)
== END 2022-11-11 19:19 | disposition home or self-care (01) ==
LOC: ER 17:46
DX: R07.9 Chest pain, unspecified (principal); F41.9 Anxiety disorder, unspecified; J45.909 Unspecified asthma, uncomplicated; I10 Essential (primary) hypertension; Z88.6 Allergy status to analgesic agent; Z79.899 Other long term (current) drug therapy; Z88.5 Allergy status to narcotic agent; Z88.8 Allergy status to other drugs, medicaments and biological substances
CPT/HCPCS: 36415; 71045; 80053; 84484; 85025; 85379; 93005; 99285

== ENCOUNTER 2022-11-25 16:52 | Emergency (ER) | payer MEDICAID ==
[~2022-11-25] VITALS: Ht 170.2 cm; Wt 132.0 kg
[2022-11-25 16:58] VITALS: BP 146/92; PULSE 87; RESP 16; TEMP 98.7; O2SAT 99
[2022-11-25 17:39] LABS: DIFFERENTIAL COMMENT 0; EOSINOPHILS % 2.6 % (0.0-5.0); HEMATOCRIT. 35.2 % (36.0-48.0); HEMOGLOBIN. 11.5 g/dL (12.0-16.0); LYMPHOCYTES % 27.1 % (20.0-50.0); MEAN CORPUSCULAR HEMOGLOBIN 25.8 pg (28.0-32.0); MEAN CORPUSCULAR HGB CONC 32.6 g/dL (31.0-37.0); MEAN CORPUSCULAR VOLUME 79.1 fL (81.0-99.0); MEAN PLATELET VOLUME 7.9 fl (7.4-10.4); MONOCYTES % 7.8 % (2.0-8.0); NEUTROPHILS % 61.5 % (40.0-76.0); PLATELET 365 x1000/uL (130-400); RED BLOOD CELL COUNT 4.45 mill/uL (4.2-5.4); RED CELL DISTRIBUTION WIDTH 17.1 % (11.6-14.6); WHITE BLOOD COUNT 9.1 x1000/uL (4.5-11.0)
[2022-11-25 17:49] LABS: CHLORIDE 111 mEq/L (98-107); INDEX HEMOLYSI 1 (1-3); INDEX ICTERIC 1 (1-4); INDEX LIPEMIC 1 (1-3); POTASSIUM 3.9 mEq/L (3.5-5.1); SODIUM 138 mEq/L (136-145)
[2022-11-25 17:51] LABS: D-DIMER 0.37 mg/L FEU (<0.50); PROTHROMBIN TIME 10.3 sec (9.6-11.0)
[2022-11-25 17:56] LABS: ALANINE AMINOTRANSFERASE 20 IU/L (13-61); ALBUMIN 3.4 g/dL (3.4-5.0); ASPARTATE AMINOTRANSFERASE 12 IU/L (15-37); CARBON DIOXIDE 25 mEq/L (21-32); GLUCOSE 124 mg/dL (70-105); UREA NITROGEN BLOOD 18 mg/dL (7-21)
[2022-11-25 18:01] LABS: BILIRUBIN TOTAL 0.5 mg/dL (0.1-1.0); CREATININE 1.1 mg/dL (0.6-1.3); NT PRO B-TYPE NATRIURETIC PEP 62 pg/mL (5-125); PROTEIN TOTAL 7.6 g/dL (6.0-8.3); TROPONIN I HIGH SENSITIVITY 19 ng/L (<54)
== END 2022-11-25 19:29 | disposition home or self-care (01) ==
LOC: ER 16:58
DX: R07.89 Other chest pain (principal); F41.9 Anxiety disorder, unspecified; J45.909 Unspecified asthma, uncomplicated; I10 Essential (primary) hypertension; Z87.19 Personal history of other diseases of the digestive system
CPT/HCPCS: 36415; 71045; 80053; 83880; 84484; 85025; 85379; 93005; 99285

== ENCOUNTER 2022-12-02 07:53 | Emergency (ER) | payer MEDICAID ==
[~2022-12-02] VITALS: Ht 170.2 cm; Wt 127.0 kg
[2022-12-02 07:57] VITALS: O2SAT 99
[2022-12-02 08:22] VITALS: BP 131/72; PULSE 82; RESP 16; TEMP 98.9
[2022-12-02 08:48] LABS: BASOPHILS % 1.2 % (0.0-2.0); DIFFERENTIAL COMMENT 0; EOSINOPHILS % 2.3 % (0.0-5.0); HEMATOCRIT. 36.9 % (36.0-48.0); HEMOGLOBIN. 12.3 g/dL (12.0-16.0); MEAN CORPUSCULAR HEMOGLOBIN 26.5 pg (28.0-32.0); MEAN CORPUSCULAR HGB CONC 33.3 g/dL (31.0-37.0); MEAN CORPUSCULAR VOLUME 79.5 fL (81.0-99.0); MEAN PLATELET VOLUME 7.6 fl (7.4-10.4); MONOCYTES % 6.3 % (2.0-8.0); NEUTROPHILS % 62.2 % (40.0-76.0); PLATELET 346 x1000/uL (130-400); RED BLOOD CELL COUNT 4.64 mill/uL (4.2-5.4); RED CELL DISTRIBUTION WIDTH 16.7 % (11.6-14.6)
[2022-12-02 09:01] LABS: CHLORIDE 110 mEq/L (98-107); INDEX HEMOLYSI 1 (1-3); INDEX ICTERIC 1 (1-4); INDEX LIPEMIC 1 (1-3); SODIUM 138 mEq/L (136-145)
[2022-12-02 09:08] LABS: ALANINE AMINOTRANSFERASE 26 IU/L (13-61); ALBUMIN 3.6 g/dL (3.4-5.0); ASPARTATE AMINOTRANSFERASE 37 IU/L (15-37); BILIRUBIN TOTAL 0.4 mg/dL (0.1-1.0); CARBON DIOXIDE 24 mEq/L (21-32); CREATININE 0.9 mg/dL (0.6-1.3); GLUCOSE 114 mg/dL (70-105); UREA NITROGEN BLOOD 13 mg/dL (7-21)
[2022-12-02 11:50] LABS: CLARITY URINE CLEAR (CLEAR); COLOR URINE YELLOW (YELLOW); GLUCOSE URINE NEGATIVE (NEGATIVE); KETONES URINE NEGATIVE (NEGATIVE); LEUKOCYTE ESTERASE URINE NEGATIVE (NEGATIVE); NITRITE URINE NEGATIVE (NEGATIVE); OCCULT BLOOD URINE NEGATIVE (NEGATIVE); PROTEIN URINE NEGATIVE (NEGATIVE); SPECIFIC GRAVITY URINE 1.023 (1.005-1.030)
== END 2022-12-02 13:46 | disposition home or self-care (01) ==
LOC: ER 07:53
DX: R10.84 Generalized abdominal pain (principal); I10 Essential (primary) hypertension; J45.909 Unspecified asthma, uncomplicated; Z88.6 Allergy status to analgesic agent; Z88.5 Allergy status to narcotic agent; Z79.899 Other long term (current) drug therapy; Z98.890 Other specified postprocedural states
CPT/HCPCS: 36415; 74176; 80053; 81003; 81025; 85025; 99284

== ENCOUNTER 2022-12-19 12:54 | Emergency (ER) | payer MEDICAID ==
[~2022-12-19] VITALS: Ht 170.2 cm; Wt 127.0 kg
[~2022-12-19 12:54] MED LIST changes: -MECL-159 MT; +MECL-299 MT
[2022-12-19 13:10] VITALS: BP 171/96; PULSE 100; RESP 18; TEMP 98.3; O2SAT 100
[2022-12-19] MEDS ORDERED: FAMOTIDINE 20MG TABLET PO ONE (13:45)
[2022-12-19] MEDS ORDERED: MAGNESIUM/ALUMINUM HYDROXIDE/SIMETHICONE 30ML UDC PO ONE (13:45)
[2022-12-19 15:24] LABS: CLARITY URINE CLEAR (CLEAR); COLOR URINE YELLOW (YELLOW); GLUCOSE URINE NEGATIVE (NEGATIVE); KETONES URINE NEGATIVE (NEGATIVE); LEUKOCYTE ESTERASE URINE NEGATIVE (NEGATIVE); NITRITE URINE NEGATIVE (NEGATIVE); OCCULT BLOOD URINE NEGATIVE (NEGATIVE); PROTEIN URINE NEGATIVE (NEGATIVE); SPECIFIC GRAVITY URINE 1.015 (1.005-1.030); UROBILINOGEN URINE 0.2 E.U./dL (0.2-1.0)
[2022-12-19 16:02] LABS: BASOPHILS % 1.7 % (0.0-2.0); DIFFERENTIAL COMMENT 0; EOSINOPHILS % 2.6 % (0.0-5.0); HEMOGLOBIN. 12.7 g/dL (12.0-16.0); MEAN CORPUSCULAR HEMOGLOBIN 25.9 pg (28.0-32.0); MEAN CORPUSCULAR HGB CONC 32.6 g/dL (31.0-37.0); MEAN CORPUSCULAR VOLUME 79.6 fL (81.0-99.0); MEAN PLATELET VOLUME 7.9 fl (7.4-10.4); MONOCYTES % 5.2 % (2.0-8.0); NEUTROPHILS % 65.5 % (40.0-76.0); PLATELET 352 x1000/uL (130-400); RED CELL DISTRIBUTION WIDTH 16.7 % (11.6-14.6); WHITE BLOOD COUNT 8.7 x1000/uL (4.5-11.0)
[2022-12-19 16:10] LABS: CHLORIDE 105 mEq/L (98-107); INDEX HEMOLYSI 1 (1-3); INDEX ICTERIC 1 (1-4); INDEX LIPEMIC 1 (1-3); SODIUM 135 mEq/L (136-145)
[2022-12-19 16:18] LABS: ALANINE AMINOTRANSFERASE 20 IU/L (13-61); ALBUMIN 3.9 g/dL (3.4-5.0); ASPARTATE AMINOTRANSFERASE 15 IU/L (15-37); BILIRUBIN TOTAL 0.4 mg/dL (0.1-1.0); CALCIUM 9.2 mg/dL (8.5-10.1); CARBON DIOXIDE 29 mEq/L (21-32); GLUCOSE 98 mg/dL (70-105); PROTEIN TOTAL 8.2 g/dL (6.0-8.3); UREA NITROGEN BLOOD 22 mg/dL (7-21)
[2022-12-19 16:57] LABS: TROPONIN I HIGH SENSITIVITY 12 ng/L (<54)
[2022-12-19] MEDS ORDERED: FAMOTIDINE 20MG TABLET PO NR (17:00)
[2022-12-19] MEDS ORDERED: MAGNESIUM/ALUMINUM HYDROXIDE/SIMETHICONE 30ML UDC PO NR (17:00)
[2022-12-19] MEDS ORDERED: FAMO-135 MT (17:21)
[2022-12-19] MEDS ORDERED: ACET-2708 MT (17:21)
== END 2022-12-19 17:42 | disposition home or self-care (01) ==
LOC: ER 12:54
DX: R10.12 Left upper quadrant pain (principal); F41.9 Anxiety disorder, unspecified; J45.909 Unspecified asthma, uncomplicated; I10 Essential (primary) hypertension; Z87.19 Personal history of other diseases of the digestive system; Z79.899 Other long term (current) drug therapy
CPT/HCPCS: 36415; 71045; 74176; 80053; 81003; 81025; 84484; 85025; 93005; 99285

== ENCOUNTER 2023-02-18 15:49 | Emergency (ER) | payer MEDICAID ==
[~2023-02-18 15:49] MED LIST changes: +FAMO-135 MT
[2023-02-18 16:00] VITALS: PULSE 107; RESP 16
== END 2023-02-18 17:33 | disposition left against medical advice (07) ==
LOC: ER 15:49
DX: Z53.21 Procedure and treatment not carried out due to patient leaving prior to being seen by health care provider (principal)
CPT/HCPCS: 99281

== ENCOUNTER 2023-02-26 07:32 | Emergency (ER) | payer MEDICAID ==
[~2023-02-26] VITALS: Ht 170.2 cm; Wt 131.5 kg
[2023-02-26 07:44] VITALS: BP 159/84; O2SAT 99
[2023-02-26 10:09] LABS: BASOPHILS % 1.4 % (0.0-2.0); EOSINOPHILS % 2.1 % (0.0-5.0); HEMATOCRIT. 38.5 % (36.0-48.0); HEMOGLOBIN. 12.4 g/dL (12.0-16.0); LYMPHOCYTES % 23.5 % (20.0-50.0); MEAN CORPUSCULAR HEMOGLOBIN 26.5 pg (28.0-32.0); MEAN CORPUSCULAR HGB CONC 32.1 g/dL (31.0-37.0); MEAN CORPUSCULAR VOLUME 82.4 fL (81.0-99.0); MEAN PLATELET VOLUME 7.4 fl (7.4-10.4); MONOCYTES % 6.2 % (2.0-8.0); NEUTROPHILS % 66.8 % (40.0-76.0); PLATELET 395 x1000/uL (130-400); RED BLOOD CELL COUNT 4.67 mill/uL (4.2-5.4); RED CELL DISTRIBUTION WIDTH 16.4 % (11.6-14.6); WHITE BLOOD COUNT 7.7 x1000/uL (4.5-11.0)
[2023-02-26 10:23] LABS: ALANINE AMINOTRANSFERASE 11 IU/L (10-49); ALBUMIN 4.2 g/dL (3.2-4.8); ASPARTATE AMINOTRANSFERASE 15 IU/L (<34); BILIRUBIN TOTAL 0.6 mg/dL (0.1-1.0); CARBON DIOXIDE 29 mEq/L (21-32); CHLORIDE 105 mEq/L (98-107); CREATININE 0.9 mg/dL (0.6-1.0); GLUCOSE 104 mg/dL (70-105); POTASSIUM 4.3 mEq/L (3.5-5.1); PROTEIN TOTAL 6.8 g/dL (6.0-8.3); SODIUM 139 mEq/L (136-145); TROPONIN I HIGH SENSITIVITY 6 ng/L (3.0-34); UREA NITROGEN BLOOD 10 mg/dL (9-23)
[2023-02-26 11:07] VITALS: PULSE 83; RESP 16; TEMP 98.2
== END 2023-02-26 11:11 | disposition home or self-care (01) ==
LOC: ER 08:03
DX: R07.89 Other chest pain (principal); I10 Essential (primary) hypertension; J45.909 Unspecified asthma, uncomplicated; Z88.6 Allergy status to analgesic agent; Z88.5 Allergy status to narcotic agent; Z79.899 Other long term (current) drug therapy; Z98.890 Other specified postprocedural states
CPT/HCPCS: 80053; 85025; 84484; 36415; 71045; 99284; Z7610

== ENCOUNTER 2023-03-04 07:30 | Emergency (ER) | payer MEDICAID ==
[~2023-03-04] VITALS: Ht 177.8 cm; Wt 122.0 kg
[2023-03-04 07:40] VITALS: TEMP 98.7; O2SAT 98
[2023-03-04] MEDS ORDERED: ACETAMINOPHEN 325MG TABLET PO STA (10:41)
[2023-03-04] MEDS ORDERED: FUROSEMIDE 40MG TABLET PO NR (12:00)
[2023-03-04 12:47] VITALS: BP 160/78; PULSE 78; RESP 20
== END 2023-03-04 12:48 | disposition home or self-care (01) ==
LOC: ER 07:30
DX: M25.571 Pain in right ankle and joints of right foot (principal); I10 Essential (primary) hypertension; J45.909 Unspecified asthma, uncomplicated; Z88.6 Allergy status to analgesic agent; Z88.5 Allergy status to narcotic agent; Z79.899 Other long term (current) drug therapy; Z98.890 Other specified postprocedural states
CPT/HCPCS: 71045; 93971; 99284

== ENCOUNTER 2023-05-04 08:08 | Emergency (ER) | payer MEDICAID ==
[~2023-05-04] VITALS: Ht 172.7 cm; Wt 136.0 kg
[2023-05-04 08:22] VITALS: BP 160/84; PULSE 92; RESP 20; TEMP 98.4; O2SAT 98
[2023-05-04 09:07] LABS: BASOPHILS % 0.8 % (0.0-2.0); EOSINOPHILS % 2.8 % (0.0-5.0); HEMATOCRIT. 36.8 % (36.0-48.0); LYMPHOCYTES % 28.5 % (20.0-50.0); MEAN CORPUSCULAR HEMOGLOBIN 26.5 pg (28.0-32.0); MEAN CORPUSCULAR HGB CONC 32.7 g/dL (31.0-37.0); MEAN CORPUSCULAR VOLUME 81.1 fL (81.0-99.0); MEAN PLATELET VOLUME 7.6 fl (7.4-10.4); MONOCYTES % 7.5 % (2.0-8.0); NEUTROPHILS % 60.4 % (40.0-76.0); PLATELET 364 x1000/uL (130-400); RED BLOOD CELL COUNT 4.54 mill/uL (4.2-5.4); RED CELL DISTRIBUTION WIDTH 16.7 % (11.6-14.6); WHITE BLOOD COUNT 7.8 x1000/uL (4.5-11.0)
[2023-05-04 09:29] LABS: ALANINE AMINOTRANSFERASE 12 IU/L (10-49); ALBUMIN 4.5 g/dL (3.2-4.8); ASPARTATE AMINOTRANSFERASE 18 IU/L (<34); BILIRUBIN TOTAL 0.5 mg/dL (0.1-1.0); CALCIUM 8.9 mg/dL (8.7-10.4); CARBON DIOXIDE 25 mEq/L (21-32); CHLORIDE 106 mEq/L (98-107); CREATININE 0.8 mg/dL (0.6-1.0); GLUCOSE 111 mg/dL (70-105); PROTEIN TOTAL 7.8 g/dL (6.0-8.3); SODIUM 138 mEq/L (136-145); TROPONIN I HIGH SENSITIVITY 8 ng/L (3.0-34); UREA NITROGEN BLOOD 17 mg/dL (9-23)
[2023-05-04 09:40] LABS: HCG SCREEN NEGATIVE
== END 2023-05-04 10:50 | disposition home or self-care (01) ==
LOC: ER 08:25
DX: R07.89 Other chest pain (principal); I10 Essential (primary) hypertension; J45.909 Unspecified asthma, uncomplicated; Z88.6 Allergy status to analgesic agent; Z88.5 Allergy status to narcotic agent; Z79.899 Other long term (current) drug therapy; Z98.890 Other specified postprocedural states
CPT/HCPCS: 36415; 71045; 80053; 83880; 84484; 84703; 85025; 93005; 99285

== ENCOUNTER 2023-05-05 02:55 | Emergency (ER) | payer MEDICAID ==
[~2023-05-05] VITALS: Ht 170.2 cm; Wt 111.5 kg
[2023-05-05 03:16] VITALS: BP 150/94; TEMP 98.7; O2SAT 99
[2023-05-05 03:18] VITALS: PULSE 78; RESP 18
== END 2023-05-05 08:39 | disposition left against medical advice (07) ==
LOC: ER 02:55
DX: R07.89 Other chest pain (principal); Z53.21 Procedure and treatment not carried out due to patient leaving prior to being seen by health care provider
CPT/HCPCS: 93005; 99281

== ENCOUNTER 2023-05-18 17:47 | Emergency (ER) | payer MEDICAID ==
[~2023-05-18] VITALS: Ht 170.2 cm; Wt 126.1 kg
[2023-05-18 18:00] VITALS: O2SAT 98
[2023-05-18 18:55] LABS: BASOPHILS % 1.3 % (0.0-2.0); HEMATOCRIT. 37.1 % (36.0-48.0); HEMOGLOBIN. 11.9 g/dL (12.0-16.0); LYMPHOCYTES % 32.8 % (20.0-50.0); MEAN CORPUSCULAR HEMOGLOBIN 25.6 pg (28.0-32.0); MEAN CORPUSCULAR VOLUME 80.2 fL (81.0-99.0); MEAN PLATELET VOLUME 7.5 fl (7.4-10.4); MONOCYTES % 7.5 % (2.0-8.0); NEUTROPHILS % 55.4 % (40.0-76.0); PLATELET 321 x1000/uL (130-400); RED BLOOD CELL COUNT 4.63 mill/uL (4.2-5.4); RED CELL DISTRIBUTION WIDTH 16.3 % (11.6-14.6); WHITE BLOOD COUNT 7.7 x1000/uL (4.5-11.0)
[2023-05-18 19:08] LABS: ALANINE AMINOTRANSFERASE 11 IU/L (10-49); ALBUMIN 4.1 g/dL (3.2-4.8); ASPARTATE AMINOTRANSFERASE 16 IU/L (<34); BILIRUBIN TOTAL 0.5 mg/dL (0.1-1.0); CALCIUM 8.8 mg/dL (8.7-10.4); CARBON DIOXIDE 27 mEq/L (21-32); CHLORIDE 107 mEq/L (98-107); CREATININE 0.9 mg/dL (0.6-1.0); GLUCOSE 97 mg/dL (70-105); POTASSIUM 3.8 mEq/L (3.5-5.1); PROTEIN TOTAL 7.3 g/dL (6.0-8.3); SODIUM 139 mEq/L (136-145); TROPONIN I HIGH SENSITIVITY 8 ng/L (3.0-34); UREA NITROGEN BLOOD 11 mg/dL (9-23)
[2023-05-19 01:04] LABS: CLARITY URINE CLEAR (CLEAR); COLOR URINE YELLOW (YELLOW); GLUCOSE URINE NEGATIVE (NEGATIVE); KETONES URINE NEGATIVE (NEGATIVE); LEUKOCYTE ESTERASE URINE NEGATIVE (NEGATIVE); NITRITE URINE NEGATIVE (NEGATIVE); OCCULT BLOOD URINE NEGATIVE (NEGATIVE); PH URINE 5.5 (4.5-8.0); PROTEIN URINE NEGATIVE (NEGATIVE)
[2023-05-19] MEDS: ACETAMINOPHEN 325MG TABLET PO NR (01:38)
[2023-05-19] MEDS ORDERED: MECL-299 MT (01:43)
[2023-05-19 01:44] VITALS: BP 164/92; PULSE 76; RESP 15; TEMP 97.5
== END 2023-05-19 01:45 | disposition home or self-care (01) ==
LOC: ER 17:47
DX: I10 Essential (primary) hypertension (principal); F41.9 Anxiety disorder, unspecified; J45.909 Unspecified asthma, uncomplicated; K80.20 Calculus of gallbladder without cholecystitis without obstruction; Z88.6 Allergy status to analgesic agent; Z88.5 Allergy status to narcotic agent; Z88.8 Allergy status to other drugs, medicaments and biological substances
CPT/HCPCS: 36415; 71045; 80053; 81003; 81025; 84484; 85025; 99284

== ENCOUNTER 2023-06-18 07:31 | Emergency (ER) | payer MEDICAID ==
[~2023-06-18] VITALS: Ht 170.2 cm; Wt 131.0 kg
[2023-06-18 07:34] VITALS: O2SAT 99
[2023-06-18 11:07] LABS: BASOPHILS % 1.3 % (0.0-2.0); EOSINOPHILS % 4.1 % (0.0-5.0); HEMATOCRIT. 39.5 % (36.0-48.0); HEMOGLOBIN. 12.8 g/dL (12.0-16.0); LYMPHOCYTES % 32.6 % (20.0-50.0); MEAN CORPUSCULAR HEMOGLOBIN 26.1 pg (28.0-32.0); MEAN CORPUSCULAR HGB CONC 32.5 g/dL (31.0-37.0); MEAN CORPUSCULAR VOLUME 80.2 fL (81.0-99.0); MEAN PLATELET VOLUME 7.5 fl (7.4-10.4); MONOCYTES % 5.8 % (2.0-8.0); NEUTROPHILS % 56.2 % (40.0-76.0); PLATELET 356 x1000/uL (130-400); RED BLOOD CELL COUNT 4.92 mill/uL (4.2-5.4); RED CELL DISTRIBUTION WIDTH 16.3 % (11.6-14.6); WHITE BLOOD COUNT 8.1 x1000/uL (4.5-11.0)
[2023-06-18 11:52] LABS: CALCIUM 9.1 mg/dL (8.7-10.4); CARBON DIOXIDE 28 mEq/L (21-32); CHLORIDE 105 mEq/L (98-107); GLUCOSE 94 mg/dL (70-105); POTASSIUM 3.5 mEq/L (3.5-5.1); SODIUM 138 mEq/L (136-145); T4 FREE 0.97 ng/dL (0.89-1.76); THYROID STIMULATING HORMONE 3.49 uIU/mL (0.55-4.78); TROPONIN I HIGH SENSITIVITY 11 ng/L (3.0-34); UREA NITROGEN BLOOD 11 mg/dL (9-23)
[2023-06-18] MEDS: ACETAMINOPHEN 500MG TABLET PO ONE (12:29)
[2023-06-18 12:59] VITALS: BP 135/89; PULSE 90; RESP 16; TEMP 98.6
== END 2023-06-18 13:00 | disposition home or self-care (01) ==
LOC: ER 07:31
DX: R07.89 Other chest pain (principal); I10 Essential (primary) hypertension; J45.909 Unspecified asthma, uncomplicated; Z88.6 Allergy status to analgesic agent; Z88.5 Allergy status to narcotic agent; Z79.899 Other long term (current) drug therapy; Z98.890 Other specified postprocedural states
CPT/HCPCS: 36415; 71045; 80048; 83880; 84439; 84443; 84484; 85025; 93005; 99285

== ENCOUNTER 2023-06-30 17:00 | Emergency (ER) | payer MEDICAID ==
[~2023-06-30] VITALS: Ht 172.7 cm; Wt 150.0 kg
[2023-06-30 17:01] VITALS: TEMP 98.6; O2SAT 99
[2023-06-30] MEDS: FAMOTIDINE 20MG TABLET PO ONE (18:06)
[2023-06-30] MEDS: PREDNISONE 20MG TABLET PO ONE (18:06)
[2023-06-30] MEDS: DIPHENHYDRAMINE 25MG CAPSULE PO ONE (18:06)
[2023-06-30] MEDS ORDERED: DIPH25CA83 MT (19:33)
[2023-06-30] MEDS ORDERED: P20 MT (19:33)
[2023-06-30] MEDS ORDERED: FAMO-135 MT (19:33)
[2023-06-30 19:59] VITALS: BP 138/82; PULSE 72; RESP 15
== END 2023-06-30 20:01 | disposition home or self-care (01) ==
LOC: ER 17:00
DX: R60.9 Edema, unspecified (principal); T50.905A Adverse effect of unspecified drugs, medicaments and biological substances, initial encounter; F41.9 Anxiety disorder, unspecified; J45.909 Unspecified asthma, uncomplicated; I10 Essential (primary) hypertension; K80.20 Calculus of gallbladder without cholecystitis without obstruction; Z88.6 Allergy status to analgesic agent; Z88.5 Allergy status to narcotic agent; Z88.8 Allergy status to other drugs, medicaments and biological substances; Y92.89 Other specified places as the place of occurrence of the external cause
CPT/HCPCS: 99283; Q0163; J7512

== ENCOUNTER 2023-07-18 20:51 | Emergency (ER) | payer MEDICAID ==
[~2023-07-18] VITALS: Ht 170.2 cm; Wt 127.0 kg
[~2023-07-18 20:51] MED LIST changes: +DIPH25CA83 MT
[2023-07-18 21:31] VITALS: BP 164/97; RESP 16; O2SAT 100
[2023-07-18 21:34] VITALS: PULSE 102
[2023-07-18 22:23] LABS: CLARITY URINE CLEAR (CLEAR); COLOR URINE YELLOW (YELLOW); GLUCOSE URINE NEGATIVE (NEGATIVE); KETONES URINE NEGATIVE (NEGATIVE); LEUKOCYTE ESTERASE URINE NEGATIVE (NEGATIVE); NITRITE URINE NEGATIVE (NEGATIVE); OCCULT BLOOD URINE NEGATIVE (NEGATIVE); PH URINE 5.5 (4.5-8.0); PROTEIN URINE NEGATIVE (NEGATIVE); SPECIFIC GRAVITY URINE 1.017 (1.005-1.030); UROBILINOGEN URINE 0.2 E.U./dL (0.2-1.0)
[2023-07-18 23:23] LABS: BASOPHILS % 0.2 % (0.0-2.0); DIFFERENTIAL COMMENT 0; EOSINOPHILS % 2.9 % (0.0-5.0); HEMATOCRIT. 37.5 % (36.0-48.0); HEMOGLOBIN. 12.3 g/dL (12.0-16.0); MEAN CORPUSCULAR HGB CONC 32.7 g/dL (31.0-37.0); MEAN CORPUSCULAR VOLUME 79.5 fL (81.0-99.0); MEAN PLATELET VOLUME 8.2 fl (7.4-10.4); MONOCYTES % 5.5 % (2.0-8.0); NEUTROPHILS % 62.4 % (40.0-76.0); PLATELET 346 x1000/uL (130-400); RED BLOOD CELL COUNT 4.72 mill/uL (4.2-5.4); RED CELL DISTRIBUTION WIDTH 16.4 % (11.6-14.6); WHITE BLOOD COUNT 7.5 x1000/uL (4.5-11.0)
[2023-07-18 23:32] LABS: CHLORIDE 108 mEq/L (98-107); POTASSIUM 3.8 mEq/L (3.5-5.1); SODIUM 141 mEq/L (136-145)
[2023-07-18 23:33] LABS: CARBON DIOXIDE 28 mEq/L (21-32)
[2023-07-18 23:34] LABS: CALCIUM 9.1 mg/dL (8.7-10.4)
[2023-07-18 23:38] LABS: GLUCOSE 96 mg/dL (70-105); UREA NITROGEN BLOOD 12 mg/dL (9-23)
[2023-07-18 23:40] LABS: ALANINE AMINOTRANSFERASE 9 IU/L (10-49); ALBUMIN 4.5 g/dL (3.2-4.8); ASPARTATE AMINOTRANSFERASE 14 IU/L (<34)
[2023-07-18 23:41] LABS: BILIRUBIN TOTAL 0.5 mg/dL (0.1-1.0); PROTEIN TOTAL 7.9 g/dL (6.0-8.3)
[2023-07-19 00:03] LABS: TROPONIN I HIGH SENSITIVITY 55 ng/L (3.0-34)
[2023-07-19] MEDS: ASPIRIN 81MG TABLET PO ONE (03:04)
[2023-07-19 03:05] VITALS: TEMP 98.1
[2023-07-19] MEDS: ACETAMINOPHEN 500MG TABLET PO ONE (03:05)
[2023-07-19 04:25] LABS: TROPONIN I HIGH SENSITIVITY 41 ng/L (3.0-34)
== END 2023-07-19 06:14 | disposition left against medical advice (07) ==
LOC: ER 20:51 → CANBEDREQ 07-20 18:03
DX: R07.89 Other chest pain (principal); I51.7 Cardiomegaly; F41.9 Anxiety disorder, unspecified; J45.909 Unspecified asthma, uncomplicated; I10 Essential (primary) hypertension; Z87.19 Personal history of other diseases of the digestive system
CPT/HCPCS: 80053; 81003; 81025; 85025; 84484 ×2; 36415 ×2; 71045; 93005; 99285; 83880; Z7610

== ENCOUNTER 2023-09-16 00:45 | Emergency (ER) | payer MEDICAID ==
[~2023-09-16] VITALS: Ht 172.7 cm; Wt 130.0 kg
[2023-09-16 00:52] VITALS: BP 174/110; RESP 18; TEMP 98.2; O2SAT 99
[2023-09-16 00:53] VITALS: PULSE 91
== END 2023-09-16 05:37 | disposition left against medical advice (07) ==
LOC: ER 00:45
DX: M25.511 Pain in right shoulder (principal); Z53.21 Procedure and treatment not carried out due to patient leaving prior to being seen by health care provider

== ENCOUNTER 2024-02-11 07:45 | Emergency (ER) | payer MEDICAID ==
[~2024-02-11] VITALS: Ht 170.2 cm; Wt 146.0 kg
[~2024-02-11 07:45] MED LIST changes: -ABIL10; -ACET-2708 MT; +ACET-3800 PO; +ALBU18HF2 PO; +AMLO5TAB88 PO; +ASPI-1160 PO; +ATEN-42 PO; +BENA-8 MT; +BENZ200C52 MT; +CHOL-36 PO; +CLOB60CR4 TP; -CLONIDINE; +CYCL10TA21 MT; +DICL100G32 TP; +DIPH-1205 PO; +DIPH25TA23 MT; +ERGO2000 PO; -FAMO20TA8 PO; +FERR-71 MT; +FLUO-413 PO; +FLUT15.844 BOTHNSTRLS; +FURO20TA4 PO; +GABA-529 PO; +HYDR-3735 PO; -LABETOLOL; -LASIX; +LORA10TA7 PO; +MELO-106 PO; -NORVASC; +OLAN10TA72 PO; +OXYBUTYNIN 5 MG PO; -P20 MT; -T3 PO; +TIZA-204 PO; -TRAZODONE; +VALS160T28 PO; -[UNRECOGNIZED DRUG - OTHER]
[2024-02-11 07:49] VITALS: O2SAT 98
[2024-02-11] MEDS ORDERED: CYCL10TA21 MT (10:44)
[2024-02-11 10:53] VITALS: BP 152/91; PULSE 88; RESP 16; TEMP 37.16964; O2SAT 98
== END 2024-02-11 11:00 | disposition home or self-care (01) ==
LOC: ER 07:45
DX: R25.2 Cramp and spasm (principal); I10 Essential (primary) hypertension; J45.909 Unspecified asthma, uncomplicated; F41.9 Anxiety disorder, unspecified; Z88.6 Allergy status to analgesic agent; Z88.5 Allergy status to narcotic agent; Z79.899 Other long term (current) drug therapy; Z79.82 Long term (current) use of aspirin; Z98.890 Other specified postprocedural states
CPT/HCPCS: 93970; 99284

== ENCOUNTER 2024-02-15 07:30 | Emergency (ER) | payer MEDICAID ==
[~2024-02-15] VITALS: Ht 170.2 cm; Wt 127.0 kg
[2024-02-15 07:36] VITALS: O2SAT 99
[2024-02-15] MEDS ORDERED: IBUPROFEN 800MG TABLET PO ONE (08:15)
[2024-02-15] MEDS: TRAMADOL 50MG TABLET PO NR (08:59)
[2024-02-15] MEDS: BACLOFEN 20MG TABLET PO NR (08:59)
[2024-02-15 09:46] VITALS: BP 150/78; PULSE 87; RESP 18; TEMP 36.94740; O2SAT 99
== END 2024-02-15 10:13 | disposition home or self-care (01) ==
LOC: ER 07:30
DX: M25.511 Pain in right shoulder (principal); F41.9 Anxiety disorder, unspecified; J45.909 Unspecified asthma, uncomplicated; I50.9 Heart failure, unspecified; I11.0 Hypertensive heart disease with heart failure; Z79.899 Other long term (current) drug therapy; Z88.5 Allergy status to narcotic agent; Z88.6 Allergy status to analgesic agent
CPT/HCPCS: 93971; 99284; Z7610 ×4

== ENCOUNTER 2024-09-09 07:11 | Emergency (ER) | payer MEDICAID ==
[~2024-09-09] VITALS: Ht 172.7 cm; Wt 136.0 kg
[~2024-09-09 07:11] MED LIST changes: +LIDO-53 TP; -LIDO700A15 TP; +TOLT4CAP27 PO
[2024-09-09 07:25] VITALS: TEMP 36.7; O2SAT 99
[2024-09-09] MEDS: HYDROCODONE/ACETAMINOPHEN 5/325MG TABLET PO ONE (09:21)
[2024-09-09 09:28] VITALS: BP 153/94; PULSE 78; RESP 15; O2SAT 99
[2024-09-09] MEDS ORDERED: TRAM50TA3 MT (09:42)
== END 2024-09-09 09:30 | disposition home or self-care (01) ==
LOC: ER 07:11
DX: M17.11 Unilateral primary osteoarthritis, right knee (principal); M71.21 Synovial cyst of popliteal space [Baker], right knee; F41.9 Anxiety disorder, unspecified; J45.909 Unspecified asthma, uncomplicated; I11.0 Hypertensive heart disease with heart failure; I50.9 Heart failure, unspecified; Z79.1 Long term (current) use of non-steroidal anti-inflammatories (NSAID); Z79.82 Long term (current) use of aspirin; Z79.899 Other long term (current) drug therapy; Z88.5 Allergy status to narcotic agent; Z88.6 Allergy status to analgesic agent
CPT/HCPCS: 73562; 93971; 99284

== ENCOUNTER 2024-10-20 13:50 | Emergency (ER) | payer MEDICAID ==
[~2024-10-20] VITALS: Ht 170.2 cm; Wt 136.0 kg
[2024-10-20 13:59] VITALS: O2SAT 98
[2024-10-20 14:51] LABS: BASOPHILS % 1.3 % (0.0-2.0); EOSINOPHILS % 3.5 % (0.0-5.0); HEMATOCRIT. 36.9 % (36.0-48.0); HEMOGLOBIN. 11.9 g/dL (12.0-16.0); LYMPHOCYTES % 26.6 % (20.0-50.0); MEAN PLATELET VOLUME 8.1 fl (7.4-10.4); MONOCYTES % 7.2 % (2.0-8.0); NEUTROPHILS % 61.4 % (40.0-76.0); PLATELET 332 x1000/uL (130-400); RED BLOOD CELL COUNT 4.53 mill/uL (4.2-5.4); RED CELL DISTRIBUTION WIDTH 16.0 % (11.6-14.6)
[2024-10-20 15:00] LABS: INR 1.0
[2024-10-20 15:04] LABS: CREATININE 0.9 mg/dL (0.6-1.0); UREA NITROGEN BLOOD 15 mg/dL (9-23)
[2024-10-20 15:05] LABS: ASPARTATE AMINOTRANSFERASE 17 IU/L (<34)
[2024-10-20 15:06] LABS: BILIRUBIN DIRECT 0.2 mg/dL (<=3.0); BILIRUBIN TOTAL 0.7 mg/dL (0.1-1.0); PROTEIN TOTAL 7.1 g/dL (6.0-8.3); TROPONIN I HIGH SENSITIVITY 10 ng/L (3.0-34)
[2024-10-20 15:17] LABS: HCG SCREEN NEGATIVE
[2024-10-20] MEDS ORDERED: LIDOCAINE 5% PATCH TOP ONE (15:45)
[2024-10-20] MEDS ORDERED: ACETAMINOPHEN 325MG TABLET PO ONE (15:45)
[2024-10-20 16:46] LABS: TROPONIN I HIGH SENSITIVITY 10 ng/L (3.0-34)
[2024-10-20 17:28] VITALS: PULSE 75; TEMP 36.7; O2SAT 100
[2024-10-20 17:32] VITALS: TEMP 98
[2024-10-20] MEDS: ACETAMINOPHEN 325MG TABLET PO SCH (17:32)
[2024-10-20 17:33] VITALS: BP 162/89; RESP 16
[2024-10-20] MEDS: LIDOCAINE 5% PATCH TOP SCH (17:33)
== END 2024-10-20 17:35 | disposition home or self-care (01) ==
LOC: ER 13:50
DX: R07.89 Other chest pain (principal); I11.0 Hypertensive heart disease with heart failure; I50.9 Heart failure, unspecified; J45.909 Unspecified asthma, uncomplicated; F41.9 Anxiety disorder, unspecified; Z88.6 Allergy status to analgesic agent; Z88.5 Allergy status to narcotic agent; Z79.82 Long term (current) use of aspirin; Z79.899 Other long term (current) drug therapy; Z98.890 Other specified postprocedural states
CPT/HCPCS: 80076; 80048; 84703; 83880; 83735; 85025; 85379; 85610; 85730; 84484; 36415; 71045; 93005; 99285; Z7610 ×2

== ENCOUNTER 2024-12-18 06:37 | Emergency (ER) | payer MEDICAID ==
[~2024-12-18] VITALS: Ht 170.2 cm; Wt 137.6 kg
[~2024-12-18 06:37] MED LIST changes: -DICL100G32 TP; +DICL100G46 TP
[2024-12-18 06:47] VITALS: O2SAT 100
[2024-12-18 06:51] VITALS: BP 159/108; PULSE 81; RESP 16; TEMP 36.8; O2SAT 100
[2024-12-18 07:15] VITALS: TEMP 98.2
[2024-12-18] MEDS: ACETAMINOPHEN 325MG TABLET PO ONE (07:15)
[2024-12-18] MEDS ORDERED: METH-653 MT (08:22)
== END 2024-12-18 08:36 | disposition home or self-care (01) ==
LOC: ER 06:37
DX: M54.2 Cervicalgia (principal); F41.9 Anxiety disorder, unspecified; J45.909 Unspecified asthma, uncomplicated; I50.9 Heart failure, unspecified; I11.0 Hypertensive heart disease with heart failure; Z79.899 Other long term (current) drug therapy; Z88.5 Allergy status to narcotic agent; Z88.6 Allergy status to analgesic agent
CPT/HCPCS: 99284